=== PATIENT | male | born 1935 | race Two or more races ===

== ENCOUNTER 2017-10-22 19:07 | Inpatient (IN) | payer MEDICARE ==
[~2017-10-22] VITALS: Ht 185.4 cm; Wt 113.6 kg
[~2017-10-22 19:07] MED LIST: ALBU6.7H INH; AMIO200T57 PO; ATOR40TA72 PO; DOXA8TAB PO; FINA5TAB11 PO; GEMF600T3 PO; GLIM4TAB79 PO; METF500T4 PO; METO100T14 PO
[2017-10-22 19:41] LABS: BASOPHILS % (AUTO) 0.4 % (0-1); EOSINOPHILS # (AUTO) 0.2 X10'3 (0-0.9); EOSINOPHILS % (AUTO) 3.6 % (0-6); HEMATOCRIT 38.2 % (42.0-52.0); HEMOGLOBIN 12.8 g/dl (14.0-17.9); LYMPHOCYTES # (AUTO) 0.8 X10'3 (1.1-4.8); LYMPHOCYTES % (AUTO) 15.9 % (21-51); MEAN CORPUSCULAR HGB CONC 33.4 % (33.0-36.5); MEAN CORPUSCULAR VOLUME 95.8 FL (78-98); MEAN PLATELET VOLUME 8.3 FL (7.4-10.4); MONOCYTES # (AUTO) 0.3 X10'3 (0-0.9); MONOCYTES % (AUTO) 6.1 % (2-12); PLATELET COUNT 161 X10'3 (140-440); RED BLOOD COUNT 3.99 X10'6 (4.70-6.10); RED CELL DISTRIBUTION WIDTH 14.9 % (11.5-14.5); WHITE BLOOD COUNT 5.3 X10'3 (4.5-11.0)
[2017-10-22 19:52] LABS: INR 1.4 INR; PARTIAL THROMBOPLASTIN TIME 31 SECONDS (22-32)
[2017-10-22 19:57] LABS: ALANINE AMINOTRANSFERASE 35 U/L (12-78); ALBUMIN 4.2 G/DL (3.4-5.0); ALBUMIN/GLOBULIN RATIO 1.4 (1.1-1.5); ALKALINE PHOSPHATASE 52 IU/L (46-116); ANION GAP 6 (8-16); ASPARTATE AMINO TRANSFERASE 29 U/L (10-37); BILIRUBIN,TOTAL 1.7 MG/DL (0.1-1.0); BLOOD UREA NITROGEN 19 MG/DL (7-18); BUN/CREATININE RATIO 11.9 (5.4-32.0); CALCIUM 8.8 MG/DL (8.5-10.1); CHLORIDE 101 MMOL/L (99-107); GLUCOSE 148 MG/DL (70-104); SODIUM 139 MMOL/L (135-145); TOTAL CARBON DIOXIDE 31.6 MMOL/L (24-32); TOTAL PROTEIN 7.2 G/DL (6.4-8.2); eGFR 42 ML/MIN
[2017-10-22 20:56] LABS: D-DIMER 0.27 MG/L FEU (0-0.50)
[2017-10-22] MEDS ORDERED: acetaminophen 325mg tablet PO PRN (21:15)
[2017-10-22] MEDS ORDERED: non-formulary drug (Albuterol Sulfate (Proventil Hfa) 2 PUFFS) INH PRN (21:15)
[2017-10-22] MEDS ORDERED: HYDROcodone/acetaminophen 5mg/325mg tablet PO PRN (21:15)
[2017-10-22] MEDS ORDERED: ondansetron/PF 4mg/2ml inj IV PRN (21:15)
[2017-10-22] MEDS ORDERED: mag hydrox/Alum hydrox/simeth 30ml oral suspension PO PRN (21:15)
[2017-10-22] MEDS ORDERED: magnesium hydroxide 30ml (MOM) UD suspension PO PRN (21:15)
[2017-10-22] MEDS ORDERED: albuterol 2.5 MG/3 ML nebule NEB PRN (21:25)
[2017-10-22 22:43] LABS: ALANINE AMINOTRANSFERASE 26 U/L (12-78); ALBUMIN 3.6 G/DL (3.4-5.0); ALBUMIN/GLOBULIN RATIO 1.3 (1.1-1.5); ALKALINE PHOSPHATASE 48 IU/L (46-116); ASPARTATE AMINO TRANSFERASE 27 U/L (10-37); BILIRUBIN,DIRECT 0.2 MG/DL (0-0.3); BILIRUBIN,TOTAL 1.5 MG/DL (0.1-1.0); TOTAL PROTEIN 6.4 G/DL (6.4-8.2)
[2017-10-22 23:00] VITALS: BP 154/101
[2017-10-23] VITALS (7 sets, daily range): BP systolic 118–163; BP diastolic 55–93
[2017-10-23 02:03] LABS: BASOPHILS % (AUTO) 0.7 % (0-1); EOSINOPHILS # (AUTO) 0.2 X10'3 (0-0.9); EOSINOPHILS % (AUTO) 3.7 % (0-6); HEMATOCRIT 36.4 % (42.0-52.0); HEMOGLOBIN 12.1 g/dl (14.0-17.9); LYMPHOCYTES # (AUTO) 1.1 X10'3 (1.1-4.8); MEAN CORPUSCULAR HEMOGLOBIN 31.8 PG (27.0-31.0); MEAN CORPUSCULAR HGB CONC 33.1 % (33.0-36.5); MEAN CORPUSCULAR VOLUME 95.9 FL (78-98); MEAN PLATELET VOLUME 8.6 FL (7.4-10.4); MONOCYTES # (AUTO) 0.4 X10'3 (0-0.9); MONOCYTES % (AUTO) 7.8 % (2-12); NEUTROPHILS % (AUTO) 63.8 % (42-75); PLATELET COUNT 139 X10'3 (140-440); RED BLOOD COUNT 3.79 X10'6 (4.70-6.10); RED CELL DISTRIBUTION WIDTH 15.1 % (11.5-14.5); WHITE BLOOD COUNT 4.8 X10'3 (4.5-11.0)
[2017-10-23 02:06] LABS: INR 1.4 INR; PROTHROMBIN TIME 14.4 SECONDS (9.0-12.0)
[2017-10-23 02:12] LABS: ALANINE AMINOTRANSFERASE 29 U/L (12-78); ALBUMIN 3.7 G/DL (3.4-5.0); ALBUMIN/GLOBULIN RATIO 1.3 (1.1-1.5); ALKALINE PHOSPHATASE 47 IU/L (46-116); ANION GAP 5 (8-16); ASPARTATE AMINO TRANSFERASE 28 U/L (10-37); BILIRUBIN,TOTAL 1.6 MG/DL (0.1-1.0); BLOOD UREA NITROGEN 18 MG/DL (7-18); BUN/CREATININE RATIO 12.9 (5.4-32.0); CALCIUM 8.6 MG/DL (8.5-10.1); CHLORIDE 103 MMOL/L (99-107); GLUCOSE 109 MG/DL (70-104); POTASSIUM 3.7 MMOL/L (3.5-5.1); SODIUM 139 MMOL/L (135-145); TOTAL PROTEIN 6.5 G/DL (6.4-8.2); eGFR 49 ML/MIN
[2017-10-23] MEDS ORDERED: non-formulary drug (Metoprolol Tartrate 1 TAB) PO SCH (08:00)
[2017-10-23] MEDS ORDERED: amiodarone 200mg tablet PO SCH (08:00)
[2017-10-23] MEDS ORDERED: non-formulary drug (Atorvastatin Calcium 1 TAB) PO SCH (08:00)
[2017-10-23] MEDS: gemfibrozil 600mg tablet PO SCH ×2 (08:54→20:14)
[2017-10-23] MEDS: atorvastatin 20mg tablet PO SCH (08:54)
[2017-10-23] MEDS: finasteride 5mg tablet PO SCH (08:54)
[2017-10-23] MEDS: metoprolol tartrate 50mg tablet PO SCH ×2 (08:55→20:14)
[2017-10-23] MEDS: heparin, porcine 5000 units/ml vial SQ SCH ×2 (08:55→20:13)
[2017-10-23] MEDS: levoTHYROXINE 25mcg tablet PO SCH (12:34)
[2017-10-23] MEDS: amiodarone 200mg tablet PO SCH (12:34)
[2017-10-23] MEDS: doxazosin mesylate 2mg tablet PO SCH (20:13)
[2017-10-23] MEDS ORDERED: non-formulary drug (Doxazosin Mesylate 1 TAB) PO SCH (21:00)
[2017-10-24 03:00] VITALS: BP 123/69
[2017-10-24 05:27] LABS: INR 1.4 INR
[2017-10-24 05:29] LABS: BASOPHILS % (AUTO) 0.6 % (0-1); EOSINOPHILS # (AUTO) 0.2 X10'3 (0-0.9); EOSINOPHILS % (AUTO) 4.6 % (0-6); HEMATOCRIT 35.5 % (42.0-52.0); HEMOGLOBIN 11.8 g/dl (14.0-17.9); LYMPHOCYTES # (AUTO) 1.2 X10'3 (1.1-4.8); LYMPHOCYTES % (AUTO) 28.8 % (21-51); MEAN CORPUSCULAR HEMOGLOBIN 32.2 PG (27.0-31.0); MEAN CORPUSCULAR HGB CONC 33.2 % (33.0-36.5); MEAN CORPUSCULAR VOLUME 96.8 FL (78-98); MEAN PLATELET VOLUME 8.7 FL (7.4-10.4); MONOCYTES # (AUTO) 0.3 X10'3 (0-0.9); MONOCYTES % (AUTO) 8.3 % (2-12); NEUTROPHILS # (AUTO) 2.4 X10'3 (1.8-7.7); NEUTROPHILS % (AUTO) 57.7 % (42-75); PLATELET COUNT 128 X10'3 (140-440); RED BLOOD COUNT 3.67 X10'6 (4.70-6.10); RED CELL DISTRIBUTION WIDTH 14.9 % (11.5-14.5); WHITE BLOOD COUNT 4.1 X10'3 (4.5-11.0)
[2017-10-24 06:03] LABS: ALANINE AMINOTRANSFERASE 30 U/L (12-78); ALBUMIN 3.6 G/DL (3.4-5.0); ALBUMIN/GLOBULIN RATIO 1.4 (1.1-1.5); ALKALINE PHOSPHATASE 44 IU/L (46-116); ANION GAP 6 (8-16); ASPARTATE AMINO TRANSFERASE 28 U/L (10-37); BLOOD UREA NITROGEN 17 MG/DL (7-18); BUN/CREATININE RATIO 13.1 (5.4-32.0); CHLORIDE 104 MMOL/L (99-107); GLUCOSE 101 MG/DL (70-104); POTASSIUM 3.7 MMOL/L (3.5-5.1); SODIUM 141 MMOL/L (135-145); TOTAL PROTEIN 6.2 G/DL (6.4-8.2); eGFR 53 ML/MIN
[2017-10-24 06:30] VITALS: BP 138/76
[2017-10-24] MEDS ORDERED: levoTHYROXINE 25mcg tablet PO SCH (07:00)
[2017-10-24] MEDS: gemfibrozil 600mg tablet PO SCH ×2 (07:21→19:49)
[2017-10-24] MEDS: finasteride 5mg tablet PO SCH (07:22)
[2017-10-24] MEDS: atorvastatin 20mg tablet PO SCH (07:22)
[2017-10-24] MEDS: amiodarone 200mg tablet PO SCH (07:22)
[2017-10-24] MEDS: heparin, porcine 5000 units/ml vial SQ SCH ×2 (07:23→19:49)
[2017-10-24] MEDS: levoTHYROXINE 25mcg tablet PO SCH (07:23)
[2017-10-24] MEDS: metoprolol tartrate 50mg tablet PO SCH ×2 (07:23→19:49)
[2017-10-24 11:00] VITALS: BP_SYST 134; BP_SYST 140; BP_SYST 142; BP_DIAS 85; BP_DIAS 93
[2017-10-24 15:00] VITALS: BP 156/101
[2017-10-24 18:00] VITALS: BP 145/94
[2017-10-24] MEDS: doxazosin mesylate 2mg tablet PO SCH (20:57)
[2017-10-24 22:00] VITALS: BP 138/89
[2017-10-25 02:00] VITALS: BP 155/102
[2017-10-25 06:35] VITALS: BP 138/93
[2017-10-25 06:37] LABS: INR 1.4 INR; PROTHROMBIN TIME 14.1 SECONDS (9.0-12.0)
[2017-10-25 07:01] LABS: EOSINOPHILS # (AUTO) 0.2 X10'3 (0-0.9); EOSINOPHILS % (AUTO) 3.9 % (0-6); HEMATOCRIT 33.5 % (42.0-52.0); HEMOGLOBIN 11.9 g/dl (14.0-17.9); LYMPHOCYTES # (AUTO) 1.2 X10'3 (1.1-4.8); LYMPHOCYTES % (AUTO) 29.1 % (21-51); MEAN CORPUSCULAR HEMOGLOBIN 33.7 PG (27.0-31.0); MEAN CORPUSCULAR HGB CONC 35.4 % (33.0-36.5); MEAN CORPUSCULAR VOLUME 95.3 FL (78-98); MEAN PLATELET VOLUME 8.9 FL (7.4-10.4); MONOCYTES # (AUTO) 0.3 X10'3 (0-0.9); MONOCYTES % (AUTO) 7.8 % (2-12); NEUTROPHILS # (AUTO) 2.3 X10'3 (1.8-7.7); NEUTROPHILS % (AUTO) 58.2 % (42-75); PLATELET COUNT 127 X10'3 (140-440); RED BLOOD COUNT 3.52 X10'6 (4.70-6.10); RED CELL DISTRIBUTION WIDTH 13.9 % (11.5-14.5)
[2017-10-25 07:05] LABS: ALANINE AMINOTRANSFERASE 28 U/L (12-78); ALBUMIN 3.6 G/DL (3.4-5.0); ALBUMIN/GLOBULIN RATIO 1.4 (1.1-1.5); ALKALINE PHOSPHATASE 44 IU/L (46-116); ANION GAP 6 (8-16); ASPARTATE AMINO TRANSFERASE 25 U/L (10-37); BLOOD UREA NITROGEN 15 MG/DL (7-18); BUN/CREATININE RATIO 10.7 (5.4-32.0); CALCIUM 8.6 MG/DL (8.5-10.1); CHLORIDE 106 MMOL/L (99-107); GLUCOSE 135 MG/DL (70-104); POTASSIUM 3.8 MMOL/L (3.5-5.1); SODIUM 144 MMOL/L (135-145); TOTAL PROTEIN 6.2 G/DL (6.4-8.2); eGFR 49 ML/MIN
[2017-10-25] MEDS: heparin, porcine 5000 units/ml vial SQ SCH (08:00)
[2017-10-25] MEDS: amiodarone 200mg tablet PO SCH (09:42)
[2017-10-25] MEDS: gemfibrozil 600mg tablet PO SCH (09:42)
[2017-10-25] MEDS: metoprolol tartrate 50mg tablet PO SCH (09:44)
[2017-10-25] MEDS: atorvastatin 20mg tablet PO SCH (09:44)
[2017-10-25] MEDS: levoTHYROXINE 25mcg tablet PO SCH (09:45)
[2017-10-25] MEDS: finasteride 5mg tablet PO SCH (09:45)
[2017-10-25 11:00] VITALS: BP 140/88
[2017-10-25] MEDS ORDERED: LEVO25TA7 PO (14:07)
== END 2017-10-25 14:45 | disposition home health service (06) | DRG 312 ==
LOC: ER 19:08 → ED HOLD 21:13 → PCU 3S 10-23 00:04
PROVIDERS: ADMIT Internal Medicine; ATTEND Internal Medicine
PROC: 4B02XSZ Measurement of Cardiac Pacemaker, External Approach (ICD-10-PCS; principal; 2017-10-23)
DX: R55 Syncope and collapse (principal); I11.0 Hypertensive heart disease with heart failure; I48.0 Paroxysmal atrial fibrillation; I49.5 Sick sinus syndrome; I50.9 Heart failure, unspecified; E11.9 Type 2 diabetes mellitus without complications; E78.00 Pure hypercholesterolemia, unspecified; E03.9 Hypothyroidism, unspecified; E66.9 Obesity, unspecified; E78.5 Hyperlipidemia, unspecified; G47.33 Obstructive sleep apnea (adult) (pediatric); I08.0 Rheumatic disorders of both mitral and aortic valves; Z96.651 Presence of right artificial knee joint; Z96.652 Presence of left artificial knee joint; J44.9 Chronic obstructive pulmonary disease, unspecified; K21.9 Gastro-esophageal reflux disease without esophagitis; M19.90 Unspecified osteoarthritis, unspecified site; N40.0 Benign prostatic hyperplasia without lower urinary tract symptoms; Z66 Do not resuscitate; G89.29 Other chronic pain; R74.8 Abnormal levels of other serum enzymes; N28.9 Disorder of kidney and ureter, unspecified; I25.10 Atherosclerotic heart disease of native coronary artery without angina pectoris; Z88.0 Allergy status to penicillin; Z79.899 Other long term (current) drug therapy; Z79.01 Long term (current) use of anticoagulants; Z79.82 Long term (current) use of aspirin; Z68.33 Body mass index [BMI] 33.0-33.9, adult; Z82.49 Family history of ischemic heart disease and other diseases of the circulatory system; Z82.3 Family history of stroke; Z86.73 Personal history of transient ischemic attack (TIA), and cerebral infarction without residual deficits; Z87.891 Personal history of nicotine dependence; Z95.0 Presence of cardiac pacemaker; Z95.1 Presence of aortocoronary bypass graft; Z90.49 Acquired absence of other specified parts of digestive tract; Z79.84 Long term (current) use of oral hypoglycemic drugs
CPT/HCPCS: 36415; 70450; 71045; 74021; 80053; 80076; 82948; 83880; 84439; 84443; 84484; 85025; 85379; 85610; 85730; 93005; 94760; 97110; 97116; 97161; 99285; J1644

== ENCOUNTER 2017-10-26 01:14 | Inpatient (IN) | payer MEDICARE ==
[~2017-10-26] VITALS: Ht 180.3 cm; Wt 114.8 kg
[~2017-10-26 01:14] MED LIST changes: +LEVO25TA7 PO; -METF500T4 PO
[2017-10-26 02:26] LABS: BASOPHILS # (AUTO) 0.1 X10'3 (0-0.2); BASOPHILS % (AUTO) 1.1 % (0-1); EOSINOPHILS # (AUTO) 0.1 X10'3 (0-0.9); EOSINOPHILS % (AUTO) 2.5 % (0-6); HEMATOCRIT 35.4 % (42.0-52.0); LYMPHOCYTES # (AUTO) 0.9 X10'3 (1.1-4.8); LYMPHOCYTES % (AUTO) 17.2 % (21-51); MEAN CORPUSCULAR HEMOGLOBIN 32.3 PG (27.0-31.0); MEAN CORPUSCULAR HGB CONC 33.9 % (33.0-36.5); MEAN CORPUSCULAR VOLUME 95.3 FL (78-98); MEAN PLATELET VOLUME 9.7 FL (7.4-10.4); MONOCYTES # (AUTO) 0.4 X10'3 (0-0.9); MONOCYTES % (AUTO) 7.6 % (2-12); NEUTROPHILS # (AUTO) 3.6 X10'3 (1.8-7.7); NEUTROPHILS % (AUTO) 71.6 % (42-75); PLATELET COUNT 143 X10'3 (140-440); RED BLOOD COUNT 3.72 X10'6 (4.70-6.10)
[2017-10-26 02:26] LABS: CLARITY,URINE CLEAR (Clear); COLOR,URINE YELLOW (Yellow); GLUCOSE, URINE NEGATIVE (Neg); KETONES,URINE NEGATIVE (Neg); LEUKOCYTE ESTERASE ,URINE NEGATIVE (Neg); NITRITES, URINE NEGATIVE (Neg); OCCULT BLOOD,URINE NEGATIVE (Neg); PROTEIN,URINE NEGATIVE (Neg); UROBILINOGEN,URINE 0.2 E.U/dL (0.2-1.0)
[2017-10-26 02:31] LABS: UA COLLECTION TYPE CLN CATCH MIDSTREAM
[2017-10-26 02:55] LABS: ALANINE AMINOTRANSFERASE 28 U/L (12-78); ALBUMIN 3.7 G/DL (3.4-5.0); ALBUMIN/GLOBULIN RATIO 1.3 (1.1-1.5); ALKALINE PHOSPHATASE 44 IU/L (46-116); ANION GAP 12 (8-16); ASPARTATE AMINO TRANSFERASE 27 U/L (10-37); BILIRUBIN,TOTAL 1.9 MG/DL (0.1-1.0); BLOOD UREA NITROGEN 20 MG/DL (7-18); BUN/CREATININE RATIO 13.3 (5.4-32.0); CALCIUM 8.6 MG/DL (8.5-10.1); CHLORIDE 104 MMOL/L (99-107); GLUCOSE 179 MG/DL (70-104); MAGNESIUM 1.7 MG/DL (1.5-2.4); POTASSIUM 3.7 MMOL/L (3.5-5.1); SODIUM 141 MMOL/L (135-145); TOTAL CARBON DIOXIDE 24.8 MMOL/L (24-32); TOTAL PROTEIN 6.5 G/DL (6.4-8.2); eGFR 45 ML/MIN
[2017-10-26] MEDS ORDERED: potassium Cl 20 mEq SR tablet PO PRN ×2 (04:00)
[2017-10-26] MEDS ORDERED: magnesium 2GM in 50ml NS 50 ML IV PRN (04:00)
[2017-10-26] MEDS ORDERED: magnesium Cl slow-release 64mg tablet PO PRN (04:00)
[2017-10-26] MEDS ORDERED: HYDROcodone/acetaminophen 5mg/325mg tablet PO PRN (04:00)
[2017-10-26] MEDS ORDERED: albuterol 2.5 MG/3 ML nebule NEB PRN (04:00)
[2017-10-26] MEDS ORDERED: mag hydrox/Alum hydrox/simeth 30ml oral suspension PO PRN (04:00)
[2017-10-26] MEDS ORDERED: potassium Cl 40MEQ/NS 500ml 500 ML IV PRN ×2 (04:00)
[2017-10-26] MEDS ORDERED: magnesium hydroxide 30ml (MOM) UD suspension PO PRN (04:00)
[2017-10-26] MEDS ORDERED: HYDROcodone/acetaminophen 10/325mg tab PO PRN (04:00)
[2017-10-26] MEDS ORDERED: acetaminophen 325mg tablet PO PRN (04:00)
[2017-10-26] MEDS ORDERED: ondansetron/PF 4mg/2ml inj IV PRN (04:00)
[2017-10-26] MEDS ORDERED: magnesium 4gm in 100ml NS 100 ML IV PRN (04:00)
[2017-10-26] MEDS ORDERED: ipratropium/albuterol 3ml nebule NEB PRN (04:00)
[2017-10-26] MEDS: normal saline 1000ml 1,000 ML IV SCH (05:06)
[2017-10-26] MEDS: levoTHYROXINE 100mcg tablet PO SCH (07:08)
[2017-10-26] MEDS: K and/or MAG REPLACEMENT MC SCH (08:00)
[2017-10-26 08:27] VITALS: BP 138/94
[2017-10-26] MEDS: finasteride 5mg tablet PO SCH (09:44)
[2017-10-26] MEDS: amiodarone 200mg tablet PO SCH (09:45)
[2017-10-26] MEDS: atorvastatin 20mg tablet PO SCH (09:46)
[2017-10-26] MEDS: metoprolol tartrate 50mg tablet PO SCH ×2 (09:47→21:39)
[2017-10-26] MEDS: heparin, porcine 5000 units/ml vial SQ SCH ×2 (09:48→21:35)
[2017-10-26 11:00] VITALS: BP 108/71
[2017-10-26 13:52] LABS: INR 1.4 INR; PROTHROMBIN TIME 14.4 SECONDS (9.0-12.0)
[2017-10-26 20:00] VITALS: BP 119/79
[2017-10-26] MEDS ORDERED: doxazosin mesylate 2mg tablet PO SCH (21:00)
[2017-10-26] MEDS ORDERED: warfarin 4mg tablet PO ONE (21:00)
[2017-10-26] MEDS ORDERED: temazepam 15mg capsule PO PRN (21:00)
[2017-10-27] VITALS: BP 134/88
[2017-10-27] MEDS: normal saline 1000ml 1,000 ML IV SCH ×2 (02:15→10:55)
[2017-10-27 07:09] LABS: BASOPHILS % (AUTO) 0.4 % (0-1); EOSINOPHILS # (AUTO) 0.2 X10'3 (0-0.9); EOSINOPHILS % (AUTO) 3.7 % (0-6); HEMATOCRIT 37.1 % (42.0-52.0); HEMOGLOBIN 12.4 g/dl (14.0-17.9); LYMPHOCYTES % (AUTO) 19.9 % (21-51); MEAN CORPUSCULAR HEMOGLOBIN 32.3 PG (27.0-31.0); MEAN CORPUSCULAR HGB CONC 33.3 % (33.0-36.5); MEAN CORPUSCULAR VOLUME 96.9 FL (78-98); MONOCYTES # (AUTO) 0.3 X10'3 (0-0.9); MONOCYTES % (AUTO) 6.7 % (2-12); NEUTROPHILS # (AUTO) 3.4 X10'3 (1.8-7.7); NEUTROPHILS % (AUTO) 69.3 % (42-75); PLATELET COUNT 137 X10'3 (140-440); RED BLOOD COUNT 3.82 X10'6 (4.70-6.10)
[2017-10-27 07:13] LABS: INR 1.3 INR; PROTHROMBIN TIME 13.4 SECONDS (9.0-12.0)
[2017-10-27 07:38] LABS: ALANINE AMINOTRANSFERASE 30 U/L (12-78); ALBUMIN/GLOBULIN RATIO 1.5 (1.1-1.5); ALKALINE PHOSPHATASE 47 IU/L (46-116); ANION GAP 8 (8-16); ASPARTATE AMINO TRANSFERASE 28 U/L (10-37); BILIRUBIN,TOTAL 2.1 MG/DL (0.1-1.0); BLOOD UREA NITROGEN 13 MG/DL (7-18); BUN/CREATININE RATIO 10.8 (5.4-32.0); CALCIUM 8.9 MG/DL (8.5-10.1); CHLORIDE 106 MMOL/L (99-107); CHOLESTEROL 126 MG/DL (0-200); GLUCOSE 165 MG/DL (70-104); HDL CHOLESTEROL 63 MG/DL (35-60); LDL CHOLESTEROL 53 MG/DL (50-100); MAGNESIUM 1.6 MG/DL (1.5-2.4); POTASSIUM 3.9 MMOL/L (3.5-5.1); SODIUM 143 MMOL/L (135-145); TOTAL CARBON DIOXIDE 28.7 MMOL/L (24-32); TOTAL PROTEIN 6.7 G/DL (6.4-8.2); TRIGLYCERIDES 124 MG/DL (20-135); eGFR 58 ML/MIN
[2017-10-27 07:50] VITALS: BP 117/72
[2017-10-27] MEDS: K and/or MAG REPLACEMENT MC SCH (08:00)
[2017-10-27] MEDS: levoTHYROXINE 100mcg tablet PO SCH (08:15)
[2017-10-27] MEDS: amiodarone 200mg tablet PO SCH (08:15)
[2017-10-27] MEDS: metoprolol tartrate 50mg tablet PO SCH (08:16)
[2017-10-27] MEDS: finasteride 5mg tablet PO SCH (08:16)
[2017-10-27] MEDS: atorvastatin 20mg tablet PO SCH (08:17)
[2017-10-27] MEDS: heparin, porcine 5000 units/ml vial SQ SCH (08:19)
[2017-10-27 11:45] VITALS: BP 141/98
[2017-10-27] MEDS ORDERED: enoxaparin 40mg/0.4ml syringe SUBCUT ONE (15:45)
[2017-10-27] MEDS ORDERED: LEVO25TA7 PO (15:46)
[2017-10-27] MEDS ORDERED: warfarin 5mg tablet PO ONE (21:00)
== END 2017-10-27 17:46 | disposition home health service (06) | DRG 643 ==
LOC: ER 01:14 → ED HOLD 04:03 → SUR 3N 07:47
PROVIDERS: ADMIT Internal Medicine; ATTEND Internal Medicine
DX: E03.9 Hypothyroidism, unspecified (principal); G93.40 Encephalopathy, unspecified; E11.22 Type 2 diabetes mellitus with diabetic chronic kidney disease; I13.0 Hypertensive heart and chronic kidney disease with heart failure and stage 1 through stage 4 chronic kidney disease, or unspecified chronic kidney disease; I48.91 Unspecified atrial fibrillation; I50.9 Heart failure, unspecified; E78.00 Pure hypercholesterolemia, unspecified; J44.9 Chronic obstructive pulmonary disease, unspecified; D64.9 Anemia, unspecified; N18.9 Chronic kidney disease, unspecified; G89.29 Other chronic pain; I25.10 Atherosclerotic heart disease of native coronary artery without angina pectoris; K21.9 Gastro-esophageal reflux disease without esophagitis; Z95.0 Presence of cardiac pacemaker; Z95.1 Presence of aortocoronary bypass graft; Z90.49 Acquired absence of other specified parts of digestive tract; Z88.0 Allergy status to penicillin; Z79.899 Other long term (current) drug therapy; Z79.84 Long term (current) use of oral hypoglycemic drugs; Z86.73 Personal history of transient ischemic attack (TIA), and cerebral infarction without residual deficits; Z82.3 Family history of stroke; Z82.49 Family history of ischemic heart disease and other diseases of the circulatory system; Z82.41 Family history of sudden cardiac death
CPT/HCPCS: 36415; 71045; 80053; 80061; 81003; 82140; 82948; 83036; 83735; 84439; 84443; 84484; 85025; 85610; 93005; 93306; 94760; 99285; J1644; J1650; J7030

== ENCOUNTER 2017-12-06 17:52 | Inpatient (IN) | payer MEDICARE ==
[~2017-12-06] VITALS: Ht 180.3 cm; Wt 109.0 kg
[2017-12-06 18:22] LABS: EOSINOPHILS # (AUTO) 0.3 X10'3 (0-0.9); EOSINOPHILS % (AUTO) 6.3 % (0-6); HEMATOCRIT 33.2 % (42.0-52.0); HEMOGLOBIN 11.2 g/dl (14.0-17.9); LYMPHOCYTES % (AUTO) 21.4 % (21-51); MEAN CORPUSCULAR HGB CONC 33.8 % (33.0-36.5); MEAN CORPUSCULAR VOLUME 94.8 FL (78-98); MEAN PLATELET VOLUME 8.1 FL (7.4-10.4); MONOCYTES # (AUTO) 0.5 X10'3 (0-0.9); MONOCYTES % (AUTO) 10.1 % (2-12); NEUTROPHILS # (AUTO) 2.8 X10'3 (1.8-7.7); NEUTROPHILS % (AUTO) 61.2 % (42-75); PLATELET COUNT 137 X10'3 (140-440); RED CELL DISTRIBUTION WIDTH 14.7 % (11.5-14.5); WHITE BLOOD COUNT 4.5 X10'3 (4.5-11.0)
[2017-12-06 18:32] LABS: INR 1.8 INR; PARTIAL THROMBOPLASTIN TIME 33 SECONDS (22-32); PROTHROMBIN TIME 18.4 SECONDS (9.0-12.0)
[2017-12-06] MEDS ORDERED: COU1T PO (18:44)
[2017-12-06] MEDS ORDERED: LEVO100T78 PO (18:44)
[2017-12-06] MEDS ORDERED: METF500T PO ×2 (18:44)
[2017-12-06] MEDS ORDERED: ESOM40CA30 PO (18:44)
[2017-12-06 18:48] LABS: ALANINE AMINOTRANSFERASE 23 U/L (12-78); ALBUMIN 3.6 G/DL (3.4-5.0); ALBUMIN/GLOBULIN RATIO 1.2 (1.1-1.5); ALKALINE PHOSPHATASE 53 IU/L (46-116); ANION GAP 6 (8-16); ASPARTATE AMINO TRANSFERASE 20 U/L (10-37); BILIRUBIN,TOTAL 1.9 MG/DL (0.1-1.0); BLOOD UREA NITROGEN 13 MG/DL (7-18); BUN/CREATININE RATIO 11.5 (5.4-32.0); CHLORIDE 104 MMOL/L (99-107); CREATINE KINASE 61 U/L (39-308); CREATININE 1.13 MG/DL (0.60-1.10); GLUCOSE 124 MG/DL (70-104); MAGNESIUM 1.6 MG/DL (1.5-2.4); POTASSIUM 4.5 MMOL/L (3.5-5.1); SODIUM 140 MMOL/L (135-145); TOTAL CARBON DIOXIDE 29.6 MMOL/L (24-32); TOTAL PROTEIN 6.7 G/DL (6.4-8.2); eGFR 62 ML/MIN
[2017-12-06] MEDS ORDERED: aspirin 325mg tablet PO ONE (19:00)
[2017-12-06] MEDS ORDERED: HYDROcodone/acetaminophen 5mg/325mg tablet PO PRN (20:05)
[2017-12-06] MEDS ORDERED: ondansetron/PF 4mg/2ml inj IV PRN (20:05)
[2017-12-06] MEDS ORDERED: mag hydrox/Alum hydrox/simeth 30ml oral suspension PO PRN (20:05)
[2017-12-06] MEDS ORDERED: magnesium hydroxide 30ml (MOM) UD suspension PO PRN (20:05)
[2017-12-06] MEDS ORDERED: acetaminophen 325mg tablet PO PRN ×2 (20:05)
[2017-12-06] MEDS ORDERED: albuterol 2.5 MG/3 ML nebule NEB PRN (20:50)
[2017-12-06] MEDS ORDERED: metFORMIN 500mg tablet PO SCH (21:00)
[2017-12-06] MEDS ORDERED: temazepam 15mg capsule PO PRN (21:00)
[2017-12-06] MEDS: metoprolol tartrate 50mg tablet PO SCH (21:48)
[2017-12-06] MEDS: metFORMIN 500mg tablet PO SCH (21:48)
[2017-12-06] MEDS: doxazosin mesylate 2mg tablet PO SCH (21:50)
[2017-12-06] MEDS: warfarin 1mg tablet PO SCH (21:50)
[2017-12-06 22:14] LABS: CLARITY,URINE CLEAR (Clear); COLOR,URINE YELLOW (Yellow); GLUCOSE, URINE NEGATIVE (Neg); KETONES,URINE NEGATIVE (Neg); LEUKOCYTE ESTERASE ,URINE NEGATIVE (Neg); NITRITES, URINE NEGATIVE (Neg); OCCULT BLOOD,URINE NEGATIVE (Neg); PROTEIN,URINE NEGATIVE (Neg); UROBILINOGEN,URINE 0.2 E.U/dL (0.2-1.0)
[2017-12-06 22:24] LABS: UA COLLECTION TYPE URINAL
[2017-12-07 00:05] LABS: CHOL/HDL RATIO 1.8 (0.00-4.99); CHOLESTEROL 69 MG/DL (0-200); HDL CHOLESTEROL 38 MG/DL (35-60); LDL CHOLESTEROL 24 MG/DL (50-100); TRIGLYCERIDES 80 MG/DL (20-135)
[2017-12-07 06:18] LABS: BASOPHILS % (AUTO) 0.8 % (0-1); EOSINOPHILS # (AUTO) 0.2 X10'3 (0-0.9); EOSINOPHILS % (AUTO) 5.7 % (0-6); HEMATOCRIT 30.8 % (42.0-52.0); HEMOGLOBIN 10.4 g/dl (14.0-17.9); LYMPHOCYTES # (AUTO) 0.9 X10'3 (1.1-4.8); LYMPHOCYTES % (AUTO) 22.1 % (21-51); MEAN CORPUSCULAR HEMOGLOBIN 32.1 PG (27.0-31.0); MEAN CORPUSCULAR HGB CONC 33.8 % (33.0-36.5); MEAN CORPUSCULAR VOLUME 94.9 FL (78-98); MEAN PLATELET VOLUME 8.2 FL (7.4-10.4); MONOCYTES # (AUTO) 0.4 X10'3 (0-0.9); MONOCYTES % (AUTO) 9.9 % (2-12); NEUTROPHILS # (AUTO) 2.6 X10'3 (1.8-7.7); NEUTROPHILS % (AUTO) 61.5 % (42-75); PLATELET COUNT 128 X10'3 (140-440); RED BLOOD COUNT 3.24 X10'6 (4.70-6.10); RED CELL DISTRIBUTION WIDTH 14.4 % (11.5-14.5); WHITE BLOOD COUNT 4.2 X10'3 (4.5-11.0)
[2017-12-07 06:28] LABS: ALBUMIN 3.4 G/DL (3.4-5.0); ANION GAP 9 (8-16); BLOOD UREA NITROGEN 12 MG/DL (7-18); CALCIUM 8.4 MG/DL (8.5-10.1); CHLORIDE 106 MMOL/L (99-107); GLUCOSE 72 MG/DL (70-104); INR 1.8 INR; PROTHROMBIN TIME 18.7 SECONDS (9.0-12.0); SODIUM 142 MMOL/L (135-145); TOTAL CARBON DIOXIDE 27.5 MMOL/L (24-32); eGFR 72 ML/MIN
[2017-12-07] MEDS: amiodarone 100mg tablet PO SCH (08:22)
[2017-12-07] MEDS: finasteride 5mg tablet PO SCH (08:22)
[2017-12-07] MEDS: levoTHYROXINE 100mcg tablet PO SCH (08:24)
[2017-12-07] MEDS: metFORMIN 500mg tablet PO SCH ×2 (08:24→20:26)
[2017-12-07] MEDS: atorvastatin 20mg tablet PO SCH (08:25)
[2017-12-07] MEDS: metoprolol tartrate 50mg tablet PO SCH ×2 (08:25→20:26)
[2017-12-07] MEDS: pantoprazole 40mg Tablet.DR PO SCH (08:28)
[2017-12-07 10:03] LABS: BASOPHILS % (AUTO) 0.6 % (0-1); EOSINOPHILS # (AUTO) 0.3 X10'3 (0-0.9); EOSINOPHILS % (AUTO) 5.9 % (0-6); HEMATOCRIT 29.9 % (42.0-52.0); HEMOGLOBIN 10.3 g/dl (14.0-17.9); LYMPHOCYTES # (AUTO) 0.9 X10'3 (1.1-4.8); LYMPHOCYTES % (AUTO) 18.3 % (21-51); MEAN CORPUSCULAR HEMOGLOBIN 32.5 PG (27.0-31.0); MEAN CORPUSCULAR HGB CONC 34.5 % (33.0-36.5); MEAN CORPUSCULAR VOLUME 94.3 FL (78-98); MONOCYTES # (AUTO) 0.4 X10'3 (0-0.9); MONOCYTES % (AUTO) 9.3 % (2-12); NEUTROPHILS # (AUTO) 3.1 X10'3 (1.8-7.7); NEUTROPHILS % (AUTO) 65.9 % (42-75); PLATELET COUNT 125 X10'3 (140-440); RED BLOOD COUNT 3.17 X10'6 (4.70-6.10); RED CELL DISTRIBUTION WIDTH 14.8 % (11.5-14.5); WHITE BLOOD COUNT 4.7 X10'3 (4.5-11.0)
[2017-12-07 10:09] LABS: INR 1.9 INR; PARTIAL THROMBOPLASTIN TIME 32 SECONDS (22-32); PROTHROMBIN TIME 19.4 SECONDS (9.0-12.0)
[2017-12-07 10:17] LABS: ALANINE AMINOTRANSFERASE 22 U/L (12-78); ALBUMIN 3.3 G/DL (3.4-5.0); ALBUMIN/GLOBULIN RATIO 1.2 (1.1-1.5); ALKALINE PHOSPHATASE 47 IU/L (46-116); ANION GAP 8 (8-16); ASPARTATE AMINO TRANSFERASE 22 U/L (10-37); BILIRUBIN,TOTAL 1.8 MG/DL (0.1-1.0); BLOOD UREA NITROGEN 12 MG/DL (7-18); BUN/CREATININE RATIO 10.3 (5.4-32.0); CALCIUM 8.7 MG/DL (8.5-10.1); CHLORIDE 105 MMOL/L (99-107); CREATININE 1.17 MG/DL (0.60-1.10); GLUCOSE 122 MG/DL (70-104); POTASSIUM 4.3 MMOL/L (3.5-5.1); SODIUM 143 MMOL/L (135-145); TOTAL CARBON DIOXIDE 30.2 MMOL/L (24-32); TROPONIN I 0.05 NG/ML (0.0-0.05); eGFR 60 ML/MIN
[2017-12-07 14:10] VITALS: BP 155/97
[2017-12-07 18:00] VITALS: BP 152/87
[2017-12-07] MEDS: aspirin 81mg tablet.DR PO SCH (20:26)
[2017-12-07] MEDS: doxazosin mesylate 2mg tablet PO SCH (20:33)
[2017-12-07] MEDS: warfarin 1mg tablet PO SCH ×2 (20:36→21:00)
[2017-12-07] MEDS ORDERED: dextrose 50%-water 50ml dispensing syringe IV ONE (21:25)
[2017-12-07 22:00] VITALS: BP 134/82
[2017-12-08 02:00] VITALS: BP 124/73
[2017-12-08 06:00] VITALS: BP 129/76
[2017-12-08 07:34] LABS: BASOPHILS % (AUTO) 0.8 % (0-1); EOSINOPHILS # (AUTO) 0.2 X10'3 (0-0.9); EOSINOPHILS % (AUTO) 4.6 % (0-6); HEMATOCRIT 30.4 % (42.0-52.0); HEMOGLOBIN 10.1 g/dl (14.0-17.9); LYMPHOCYTES # (AUTO) 0.9 X10'3 (1.1-4.8); LYMPHOCYTES % (AUTO) 17.7 % (21-51); MEAN CORPUSCULAR HEMOGLOBIN 31.6 PG (27.0-31.0); MEAN CORPUSCULAR HGB CONC 33.2 % (33.0-36.5); MEAN CORPUSCULAR VOLUME 95.1 FL (78-98); MEAN PLATELET VOLUME 8.2 FL (7.4-10.4); MONOCYTES # (AUTO) 0.5 X10'3 (0-0.9); MONOCYTES % (AUTO) 9.9 % (2-12); NEUTROPHILS # (AUTO) 3.4 X10'3 (1.8-7.7); PLATELET COUNT 117 X10'3 (140-440); RED CELL DISTRIBUTION WIDTH 14.4 % (11.5-14.5); WHITE BLOOD COUNT 5.1 X10'3 (4.5-11.0)
[2017-12-08 07:46] LABS: PROTHROMBIN TIME 20.1 SECONDS (9.0-12.0)
[2017-12-08 07:58] LABS: ALBUMIN 3.2 G/DL (3.4-5.0); ANION GAP 10 (8-16); BLOOD UREA NITROGEN 11 MG/DL (7-18); BUN/CREATININE RATIO 11.5 (5.4-32.0); CALCIUM 8.6 MG/DL (8.5-10.1); CHLORIDE 106 MMOL/L (99-107); CREATININE 0.96 MG/DL (0.60-1.10); GLUCOSE 55 MG/DL (70-104); POTASSIUM 3.7 MMOL/L (3.5-5.1); SODIUM 145 MMOL/L (135-145); eGFR 75 ML/MIN
[2017-12-08] MEDS ORDERED: metFORMIN 500mg tablet PO SCH (08:00)
[2017-12-08] MEDS: atorvastatin 20mg tablet PO SCH (09:19)
[2017-12-08] MEDS: levoTHYROXINE 100mcg tablet PO SCH (09:19)
[2017-12-08] MEDS: aspirin 81mg tablet.DR PO SCH (09:19)
[2017-12-08] MEDS: metoprolol tartrate 50mg tablet PO SCH ×2 (09:19→20:16)
[2017-12-08] MEDS: amiodarone 100mg tablet PO SCH (09:19)
[2017-12-08] MEDS: finasteride 5mg tablet PO SCH (09:20)
[2017-12-08] MEDS: pantoprazole 40mg Tablet.DR PO SCH (09:20)
[2017-12-08] MEDS: metFORMIN 500mg tablet PO SCH ×2 (09:20→20:15)
[2017-12-08 10:00] VITALS: BP 122/86
[2017-12-08 19:45] VITALS: BP 122/70
[2017-12-08] MEDS: warfarin 1mg tablet PO SCH (20:16)
[2017-12-08] MEDS: doxazosin mesylate 2mg tablet PO SCH (20:17)
[2017-12-08 23:12] VITALS: BP 138/90
[2017-12-09 02:43] VITALS: BP 144/83
[2017-12-09 06:00] VITALS: BP 138/84
[2017-12-09 07:06] LABS: BASOPHILS # (AUTO) 0.1 X10'3 (0-0.2); BASOPHILS % (AUTO) 1.1 % (0-1); EOSINOPHILS # (AUTO) 0.3 X10'3 (0-0.9); HEMATOCRIT 29.4 % (42.0-52.0); HEMOGLOBIN 9.8 g/dl (14.0-17.9); LYMPHOCYTES # (AUTO) 0.9 X10'3 (1.1-4.8); LYMPHOCYTES % (AUTO) 19.5 % (21-51); MEAN CORPUSCULAR HEMOGLOBIN 31.9 PG (27.0-31.0); MEAN CORPUSCULAR HGB CONC 33.3 % (33.0-36.5); MEAN CORPUSCULAR VOLUME 95.8 FL (78-98); MEAN PLATELET VOLUME 8.1 FL (7.4-10.4); MONOCYTES # (AUTO) 0.5 X10'3 (0-0.9); MONOCYTES % (AUTO) 10.9 % (2-12); NEUTROPHILS % (AUTO) 62.5 % (42-75); PLATELET COUNT 119 X10'3 (140-440); RED BLOOD COUNT 3.07 X10'6 (4.70-6.10); RED CELL DISTRIBUTION WIDTH 14.5 % (11.5-14.5); WHITE BLOOD COUNT 4.7 X10'3 (4.5-11.0)
[2017-12-09 07:18] LABS: INR 2.5 INR; PROTHROMBIN TIME 25.1 SECONDS (9.0-12.0)
[2017-12-09 07:26] LABS: ALBUMIN 3.2 G/DL (3.4-5.0); ANION GAP 8 (8-16); BLOOD UREA NITROGEN 11 MG/DL (7-18); BUN/CREATININE RATIO 11.3 (5.4-32.0); CALCIUM 8.3 MG/DL (8.5-10.1); CHLORIDE 106 MMOL/L (99-107); CREATININE 0.97 MG/DL (0.60-1.10); GLUCOSE 81 MG/DL (70-104); POTASSIUM 3.7 MMOL/L (3.5-5.1); SODIUM 144 MMOL/L (135-145); TOTAL CARBON DIOXIDE 29.6 MMOL/L (24-32); eGFR 74 ML/MIN
[2017-12-09] MEDS ORDERED: metFORMIN 500mg tablet PO SCH (08:00)
[2017-12-09] MEDS: levoTHYROXINE 100mcg tablet PO SCH (08:44)
[2017-12-09] MEDS: finasteride 5mg tablet PO SCH (08:44)
[2017-12-09] MEDS: amiodarone 100mg tablet PO SCH (08:44)
[2017-12-09] MEDS: aspirin 81mg tablet.DR PO SCH (08:44)
[2017-12-09] MEDS: pantoprazole 40mg Tablet.DR PO SCH (08:45)
[2017-12-09] MEDS: metoprolol tartrate 50mg tablet PO SCH (08:45)
[2017-12-09] MEDS: atorvastatin 20mg tablet PO SCH (08:45)
[2017-12-09] MEDS ORDERED: METF500T4 PO (10:20)
== END 2017-12-09 13:15 | disposition home health service (06) | DRG 637 ==
LOC: ER 17:54 → ED HOLD 20:02 → OBSVTOIN 12-07 14:00 → ORTHO 4S 12-07 14:00
PROVIDERS: ADMIT Hospitalist; ATTEND Family Medicine
DX: E11.649 Type 2 diabetes mellitus with hypoglycemia without coma (principal); G93.41 Metabolic encephalopathy; D69.6 Thrombocytopenia, unspecified; I48.91 Unspecified atrial fibrillation; I11.0 Hypertensive heart disease with heart failure; I50.32 Chronic diastolic (congestive) heart failure; D64.9 Anemia, unspecified; R47.01 Aphasia; E03.9 Hypothyroidism, unspecified; E78.00 Pure hypercholesterolemia, unspecified; E78.5 Hyperlipidemia, unspecified; K21.9 Gastro-esophageal reflux disease without esophagitis; I25.10 Atherosclerotic heart disease of native coronary artery without angina pectoris; J44.9 Chronic obstructive pulmonary disease, unspecified; Z60.2 Problems related to living alone; F17.210 Nicotine dependence, cigarettes, uncomplicated; Z66 Do not resuscitate; Z88.0 Allergy status to penicillin; Z90.49 Acquired absence of other specified parts of digestive tract; Z95.0 Presence of cardiac pacemaker; Z95.1 Presence of aortocoronary bypass graft; Z98.52 Vasectomy status; Z96.653 Presence of artificial knee joint, bilateral; Z79.899 Other long term (current) drug therapy; Z79.01 Long term (current) use of anticoagulants; Z79.4 Long term (current) use of insulin; Z79.84 Long term (current) use of oral hypoglycemic drugs; Z86.73 Personal history of transient ischemic attack (TIA), and cerebral infarction without residual deficits; Z82.49 Family history of ischemic heart disease and other diseases of the circulatory system; Z82.3 Family history of stroke
CPT/HCPCS: 36415; 70450; 80048; 80053; 80061; 81003; 82550; 82553; 82948; 83036; 83735; 84443; 84484; 85025; 85610; 85730; 87070; 92616; 97110; 97116; 97161; 99285; G0378; J2405; J7030

== ENCOUNTER 2018-01-10 04:56 | Emergency (ER) | payer OTHER, MEDICARE ==
[~2018-01-10] VITALS: Ht 180.3 cm; Wt 90.2 kg
[~2018-01-10 04:56] MED LIST changes: +COU1T PO; +ESOM40CA30 PO; -GEMF600T3 PO; -GLIM4TAB79 PO; +LEVO100T78 PO; -LEVO25TA7 PO; +METF500T4 PO
[2018-01-10] MEDS ORDERED: aspirin 81mg tab.chew PO ONE (05:00)
[2018-01-10 05:03] VITALS: BP 158/91
== END 2018-01-10 05:37 | disposition home or self-care (01) ==
LOC: ER 04:57
DX: R07.89 Other chest pain (principal); G89.29 Other chronic pain; E11.9 Type 2 diabetes mellitus without complications; E78.00 Pure hypercholesterolemia, unspecified; I25.10 Atherosclerotic heart disease of native coronary artery without angina pectoris; I11.0 Hypertensive heart disease with heart failure; I50.9 Heart failure, unspecified; J44.9 Chronic obstructive pulmonary disease, unspecified; I48.91 Unspecified atrial fibrillation; K21.9 Gastro-esophageal reflux disease without esophagitis; Z86.73 Personal history of transient ischemic attack (TIA), and cerebral infarction without residual deficits; Z95.0 Presence of cardiac pacemaker; Z90.49 Acquired absence of other specified parts of digestive tract; Z95.1 Presence of aortocoronary bypass graft; Z88.0 Allergy status to penicillin; Z79.01 Long term (current) use of anticoagulants; Z79.84 Long term (current) use of oral hypoglycemic drugs; Z79.899 Other long term (current) drug therapy
CPT/HCPCS: 71045; 93005; 99284; A4565

== ENCOUNTER 2018-02-26 08:28 | Day surgery (SDC) | payer MEDICARE ==
[2018-02-25 10:35] LABS: BASOPHILS % (AUTO) 0.5 % (0-1); EOSINOPHILS # (AUTO) 0.2 X10'3 (0-0.9); EOSINOPHILS % (AUTO) 4.6 % (0-6); HEMATOCRIT 30.2 % (42.0-52.0); HEMOGLOBIN 9.8 g/dl (14.0-17.9); LYMPHOCYTES # (AUTO) 0.6 X10'3 (1.1-4.8); LYMPHOCYTES % (AUTO) 10.7 % (21-51); MEAN CORPUSCULAR HEMOGLOBIN 29.5 PG (27.0-31.0); MEAN CORPUSCULAR HGB CONC 32.6 % (33.0-36.5); MEAN CORPUSCULAR VOLUME 90.4 FL (78-98); MEAN PLATELET VOLUME 8.4 FL (7.4-10.4); MONOCYTES # (AUTO) 0.4 X10'3 (0-0.9); NEUTROPHILS % (AUTO) 77.2 % (42-75); PLATELET COUNT 130 X10'3 (140-440); RED BLOOD COUNT 3.34 X10'6 (4.70-6.10); RED CELL DISTRIBUTION WIDTH 14.7 % (11.5-14.5); WHITE BLOOD COUNT 5.2 X10'3 (4.5-11.0)
[2018-02-25 10:44] LABS: ALBUMIN 3.5 G/DL (3.4-5.0); ANION GAP 5 (8-16); BLOOD UREA NITROGEN 15 MG/DL (7-18); BUN/CREATININE RATIO 15.5 (5.4-32.0); CALCIUM 8.6 MG/DL (8.5-10.1); CHLORIDE 104 MMOL/L (99-107); CREATININE 0.97 MG/DL (0.60-1.10); GLUCOSE 227 MG/DL (70-104); INR 2.3 INR; POTASSIUM 4.2 MMOL/L (3.5-5.1); SODIUM 139 MMOL/L (135-145); TOTAL CARBON DIOXIDE 29.7 MMOL/L (24-32); eGFR 74 ML/MIN
[2018-02-26] VITALS (17 sets, daily range): BP systolic 136–173; BP diastolic 76–104
[~2018-02-26] VITALS: Ht 180.3 cm; Wt 109.5 kg
[~2018-02-26 08:28] MED LIST changes: -METF500T4 PO; +METF500T6 PO
[2018-02-26] MEDS ORDERED: diphenhydrAMINE 25mg capsule PO ONE (08:45)
[2018-02-26] MEDS ORDERED: LORazepam 0.5 MG tablet PO ONE (08:45)
[2018-02-26] MEDS ORDERED: amiodarone in dextrose, iso-osm 150mg/100ml bag IV ONE (08:50)
[2018-02-26] MEDS ORDERED: morphine 10mg/ml inj. IV ONE (08:50)
[2018-02-26] MEDS ORDERED: MIDAZolam 5mg/ml 2ml vial IV ONE (08:50)
[2018-02-26] MEDS ORDERED: atropine 0.1mg/ml 10ml syringe IV ONE (08:50)
[2018-02-26] MEDS ORDERED: COU1T PO (09:18)
[2018-02-26] MEDS ORDERED: AMIO200T57 PO (09:18)
[2018-02-26] MEDS ORDERED: normal saline 1000ml 1,000 ML IV SCH (12:50)
== END 2018-02-26 15:08 | disposition home or self-care (01) ==
LOC: SSTAY O 08:28
PROVIDERS: ATTEND Internal Medicine Cardiovascular Disease
DX: I48.0 Paroxysmal atrial fibrillation (principal); E11.9 Type 2 diabetes mellitus without complications; I10 Essential (primary) hypertension; E78.5 Hyperlipidemia, unspecified; I25.10 Atherosclerotic heart disease of native coronary artery without angina pectoris; I49.5 Sick sinus syndrome; G47.33 Obstructive sleep apnea (adult) (pediatric); I27.20 Pulmonary hypertension, unspecified; E66.01 Morbid (severe) obesity due to excess calories; Z79.01 Long term (current) use of anticoagulants; Z90.49 Acquired absence of other specified parts of digestive tract; Z79.84 Long term (current) use of oral hypoglycemic drugs; Z95.0 Presence of cardiac pacemaker; Z95.1 Presence of aortocoronary bypass graft; Z87.891 Personal history of nicotine dependence
CPT/HCPCS: 36415; 80048; 82948; 85025; 85610; 92960; 93005; J2250; J2270; J7030; A4620; J0282

== ENCOUNTER 2018-07-17 13:04 | Inpatient (IN) | payer MEDICARE ==
[~2018-07-17] VITALS: Ht 180.3 cm; Wt 102.0 kg
[2018-07-17] MEDS: normal saline 1000ml 1,000 ML IV SCH (01:30)
[~2018-07-17 13:04] MED LIST changes: +AMIO200T40 PO; -AMIO200T57 PO; +METF-950 PO; -METF500T6 PO
[2018-07-17 14:48] LABS: BASOPHILS % (AUTO) 0.4 % (0-1); EOSINOPHILS # (AUTO) 0.1 X10'3 (0-0.9); EOSINOPHILS % (AUTO) 3.3 % (0-6); HEMATOCRIT 33.8 % (42.0-52.0); HEMOGLOBIN 11.4 g/dl (14.0-17.9); LYMPHOCYTES # (AUTO) 0.6 X10'3 (1.1-4.8); MEAN CORPUSCULAR HEMOGLOBIN 29.3 PG (27.0-31.0); MEAN CORPUSCULAR HGB CONC 33.9 % (33.0-36.5); MEAN CORPUSCULAR VOLUME 86.5 FL (78-98); MEAN PLATELET VOLUME 8.9 FL (7.4-10.4); MONOCYTES # (AUTO) 0.3 X10'3 (0-0.9); MONOCYTES % (AUTO) 7.9 % (2-12); NEUTROPHILS # (AUTO) 3.2 X10'3 (1.8-7.7); NEUTROPHILS % (AUTO) 73.4 % (42-75); PLATELET COUNT 127 X10'3 (140-440); RED BLOOD COUNT 3.91 X10'6 (4.70-6.10); RED CELL DISTRIBUTION WIDTH 17.5 % (11.5-14.5); WHITE BLOOD COUNT 4.2 X10'3 (4.5-11.0)
[2018-07-17 14:56] LABS: INR 2.2 INR; PARTIAL THROMBOPLASTIN TIME 32 SECONDS (22-32)
[2018-07-17 14:59] LABS: ALANINE AMINOTRANSFERASE 33 U/L (12-78); ALBUMIN 3.3 G/DL (3.4-5.0); ALBUMIN/GLOBULIN RATIO 1.1 (1.1-1.5); ALKALINE PHOSPHATASE 63 IU/L (46-116); ANION GAP 8 (8-16); ASPARTATE AMINO TRANSFERASE 25 U/L (10-37); BILIRUBIN,TOTAL 1.7 MG/DL (0.1-1.0); BLOOD UREA NITROGEN 14 MG/DL (7-18); BUN/CREATININE RATIO 13.7 (5.4-32.0); CALCIUM 8.6 MG/DL (8.5-10.1); CHLORIDE 103 MMOL/L (99-107); CREATININE 1.02 MG/DL (0.60-1.10); GLUCOSE 221 MG/DL (70-104); POTASSIUM 3.9 MMOL/L (3.5-5.1); SODIUM 140 MMOL/L (135-145); TOTAL CARBON DIOXIDE 28.8 MMOL/L (24-32); TOTAL PROTEIN 6.2 G/DL (6.4-8.2); eGFR 70 ML/MIN
[2018-07-17 15:02] LABS: TROPONIN I 0.07 NG/ML (0.0-0.05)
[2018-07-17] MEDS ORDERED: potassium Cl 40MEQ/NS 500ml 500 ML IV PRN ×2 (16:55)
[2018-07-17] MEDS ORDERED: acetaminophen 325mg tablet PO PRN ×2 (16:55)
[2018-07-17] MEDS ORDERED: dextrose 50%-water 50ml dispensing syringe IV PRN ×2 (16:55)
[2018-07-17] MEDS ORDERED: MESSAGE TO PHARMACY PO ONE (16:55)
[2018-07-17] MEDS ORDERED: magnesium 1gm/100ml D5W IVPB 100 ML IV PRN (16:55)
[2018-07-17] MEDS ORDERED: magnesium 4gm in 100ml NS 100 ML IV PRN (16:55)
[2018-07-17] MEDS ORDERED: magnesium hydroxide 30ml (MOM) UD suspension PO PRN (16:55)
[2018-07-17] MEDS ORDERED: potassium Cl 20 mEq SR tablet PO PRN ×2 (16:55)
[2018-07-17] MEDS ORDERED: mag hydrox/Alum hydrox/simeth 30ml oral suspension PO PRN (16:55)
[2018-07-17] MEDS ORDERED: magnesium Cl slow-release 64mg tablet PO PRN (16:55)
[2018-07-17] MEDS ORDERED: insulin Lispro (HumaLOG) vial - multi-dose SQ SCH (16:55)
[2018-07-17] MEDS ORDERED: ondansetron/PF 4mg/2ml inj IV PRN (16:55)
[2018-07-17] MEDS ORDERED: glucagon, human recombinant 1mg kit SUBCUT PRN (16:55)
[2018-07-17] MEDS ORDERED: dextrose ORAL solution 15 GM/59 ML bottle PO PRN ×2 (16:55)
[2018-07-17] MEDS ORDERED: non-formulary drug (Albuterol Sulfate (Proventil Hfa) 2 PUFFS) INH PRN (17:00)
[2018-07-17] MEDS ORDERED: albuterol 2.5 MG/3 ML nebule NEB PRN (17:15)
[2018-07-17 17:40] LABS: HEMOGLOBIN A1C 7.6 % (4.5-6.2)
[2018-07-17 19:20] VITALS: BP 191/101
[2018-07-17] MEDS ORDERED: hydrALAZINE 20mg/ml inj. IV PRN (20:15)
[2018-07-17] MEDS: amiodarone 200mg tablet PO SCH (20:48)
[2018-07-17] MEDS ORDERED: non-formulary drug (Atorvastatin Calcium 1 TAB) PO SCH (21:00)
[2018-07-17] MEDS ORDERED: temazepam 15mg capsule PO PRN (21:00)
[2018-07-17] MEDS ORDERED: atorvastatin 20mg tablet PO SCH (21:00)
[2018-07-17] MEDS ORDERED: insulin glargine (Lantus) pen - multi-dose SQ SCH (21:00)
[2018-07-17 22:00] VITALS: BP 157/85
[2018-07-18 02:00] VITALS: BP 176/87
[2018-07-18] MEDS: normal saline 1000ml 1,000 ML IV SCH ×2 (02:51→10:16)
[2018-07-18 06:00] VITALS: BP 115/59
[2018-07-18 06:10] LABS: ALBUMIN 2.9 G/DL (3.4-5.0); ANION GAP 7 (8-16); BLOOD UREA NITROGEN 12 MG/DL (7-18); BUN/CREATININE RATIO 13.3 (5.4-32.0); CALCIUM 8.3 MG/DL (8.5-10.1); CHLORIDE 106 MMOL/L (99-107); CHOL/HDL RATIO 2.2 (0.00-4.99); CHOLESTEROL 94 MG/DL (0-200); GLUCOSE 149 MG/DL (70-104); HDL CHOLESTEROL 42 MG/DL (35-60); LDL CHOLESTEROL 38 MG/DL (50-100); MAGNESIUM 1.3 MG/DL (1.5-2.4); PHOSPHORUS 3.3 MG/DL (2.3-4.5); POTASSIUM 3.4 MMOL/L (3.5-5.1); SODIUM 143 MMOL/L (135-145); TOTAL CARBON DIOXIDE 29.8 MMOL/L (24-32); TRIGLYCERIDES 146 MG/DL (20-135); eGFR 81 ML/MIN
[2018-07-18 06:16] LABS: HEMOGLOBIN 10.2 g/dl (14.0-17.9); MEAN CORPUSCULAR VOLUME 85.1 FL (78-98); MEAN PLATELET VOLUME 8.4 FL (7.4-10.4); PLATELET COUNT 123 X10'3 (140-440); RED BLOOD COUNT 3.52 X10'6 (4.70-6.10); RED CELL DISTRIBUTION WIDTH 17.1 % (11.5-14.5); WHITE BLOOD COUNT 4.3 X10'3 (4.5-11.0)
[2018-07-18 06:53] LABS: PARTIAL THROMBOPLASTIN TIME 31 SECONDS (22-32); PROTHROMBIN TIME 19.8 SECONDS (9.0-12.0)
[2018-07-18] MEDS ORDERED: pantoprazole 40mg Tablet.DR PO SCH (07:30)
[2018-07-18] MEDS ORDERED: finasteride 5mg tablet PO SCH (08:00)
[2018-07-18] MEDS ORDERED: K and/or MAG REPLACEMENT MC SCH (08:00)
[2018-07-18] MEDS ORDERED: levoTHYROXINE 100mcg tablet PO SCH (08:00)
[2018-07-18] MEDS ORDERED: non-formulary drug (Esomeprazole Magnesium (Nexium) 1 CAP) PO SCH (08:00)
[2018-07-18] MEDS ORDERED: warfarin 1mg tablet PO SCH (08:00)
[2018-07-18] MEDS ORDERED: aspirin 81mg tab.chew PO SCH (08:30)
[2018-07-18] MEDS: amiodarone 200mg tablet PO SCH (09:48)
[2018-07-18 10:00] VITALS: BP 156/78
[2018-07-19] MEDS ORDERED: warfarin 1mg tablet PO SCH (08:00)
== END 2018-07-18 18:04 | disposition home or self-care (01) | DRG 92 ==
LOC: ER 13:05 → ED HOLD 16:51 → ORTHO 4S 19:45
PROVIDERS: ADMIT Family Medicine; ATTEND Internal Medicine
DX: R47.1 Dysarthria and anarthria (principal); I50.22 Chronic systolic (congestive) heart failure; I13.0 Hypertensive heart and chronic kidney disease with heart failure and stage 1 through stage 4 chronic kidney disease, or unspecified chronic kidney disease; R41.0 Disorientation, unspecified; R29.810 Facial weakness; I25.10 Atherosclerotic heart disease of native coronary artery without angina pectoris; K21.9 Gastro-esophageal reflux disease without esophagitis; Z96.653 Presence of artificial knee joint, bilateral; E03.9 Hypothyroidism, unspecified; E11.22 Type 2 diabetes mellitus with diabetic chronic kidney disease; E78.00 Pure hypercholesterolemia, unspecified; D64.9 Anemia, unspecified; E78.5 Hyperlipidemia, unspecified; Z66 Do not resuscitate; G89.29 Other chronic pain; Z60.2 Problems related to living alone; I48.0 Paroxysmal atrial fibrillation; J44.9 Chronic obstructive pulmonary disease, unspecified; N18.3 Chronic kidney disease, stage 3 (moderate); N40.0 Benign prostatic hyperplasia without lower urinary tract symptoms; Z90.49 Acquired absence of other specified parts of digestive tract; Z95.0 Presence of cardiac pacemaker; Z95.1 Presence of aortocoronary bypass graft; Z88.0 Allergy status to penicillin; Z79.899 Other long term (current) drug therapy; Z79.01 Long term (current) use of anticoagulants; Z79.84 Long term (current) use of oral hypoglycemic drugs; Z87.891 Personal history of nicotine dependence; Z82.3 Family history of stroke; Z82.41 Family history of sudden cardiac death; Z82.49 Family history of ischemic heart disease and other diseases of the circulatory system
CPT/HCPCS: 36415; 70450; 70544; 70551; 71045; 80048; 80053; 80061; 82948; 83036; 83735; 84100; 84484; 85025; 85027; 85610; 85730; 87070; 92616; 93005; 93306; 97116; 97161; 97530; 99285; G0378; J0360; J1815; J7030

== ENCOUNTER 2018-08-10 11:20 | Emergency (ER) | payer MEDICARE ==
[~2018-08-10] VITALS: Ht 180.3 cm; Wt 99.8 kg
[2018-08-10] MEDS ORDERED: METF500T PO (12:05)
[2018-08-10] MEDS ORDERED: APIX5TAB3 PO (12:05)
[2018-08-10] MEDS ORDERED: LEVO50TA66 PO (12:06)
[2018-08-10] MEDS ORDERED: TETanus/Pertussis (Acell)/Diphther VAC/PF (Tdap-Adult) 0.5ml syringe IM ONE (13:20)
[2018-08-10 13:33] VITALS: BP 155/89
== END 2018-08-10 13:35 | disposition home or self-care (01) ==
LOC: ER 11:21
DX: S00.03XA Contusion of scalp, initial encounter (principal); T14.8XXA Other injury of unspecified body region, initial encounter; S06.9X1A Unspecified intracranial injury with loss of consciousness of 30 minutes or less, initial encounter; I48.91 Unspecified atrial fibrillation; I25.10 Atherosclerotic heart disease of native coronary artery without angina pectoris; I11.0 Hypertensive heart disease with heart failure; I50.9 Heart failure, unspecified; E78.00 Pure hypercholesterolemia, unspecified; K21.9 Gastro-esophageal reflux disease without esophagitis; E11.9 Type 2 diabetes mellitus without complications; G89.29 Other chronic pain; Z90.49 Acquired absence of other specified parts of digestive tract; Z95.1 Presence of aortocoronary bypass graft; Z95.0 Presence of cardiac pacemaker; Z98.890 Other specified postprocedural states; Z87.891 Personal history of nicotine dependence; Z60.2 Problems related to living alone; Z88.0 Allergy status to penicillin; Z79.01 Long term (current) use of anticoagulants; Z79.899 Other long term (current) drug therapy; W22.8XXA Striking against or struck by other objects, initial encounter; Y93.89 Activity, other specified; Y92.89 Other specified places as the place of occurrence of the external cause; Y99.8 Other external cause status
CPT/HCPCS: 70450; 72125; 90471; 90715; 93005; 99284

== ENCOUNTER 2018-08-11 12:40 | Emergency (ER) | payer MEDICARE ==
[~2018-08-11] VITALS: Ht 180.3 cm; Wt 99.5 kg
[~2018-08-11 12:40] MED LIST changes: -ALBU6.7H INH; +APIX5TAB3 PO; -COU1T PO; +LEVO50TA66 PO; +METF500T PO
[2018-08-11 13:59] VITALS: BP 136/84
== END 2018-08-11 15:39 | disposition home or self-care (01) ==
LOC: ER 12:41
DX: S06.0X9D Concussion with loss of consciousness of unspecified duration, subsequent encounter (principal); S00.03XD Contusion of scalp, subsequent encounter; I48.91 Unspecified atrial fibrillation; I25.10 Atherosclerotic heart disease of native coronary artery without angina pectoris; I11.0 Hypertensive heart disease with heart failure; I50.9 Heart failure, unspecified; J44.9 Chronic obstructive pulmonary disease, unspecified; K21.9 Gastro-esophageal reflux disease without esophagitis; E11.9 Type 2 diabetes mellitus without complications; G89.29 Other chronic pain; Z86.73 Personal history of transient ischemic attack (TIA), and cerebral infarction without residual deficits; Z90.49 Acquired absence of other specified parts of digestive tract; Z95.1 Presence of aortocoronary bypass graft; Z95.0 Presence of cardiac pacemaker; Z79.01 Long term (current) use of anticoagulants; Z88.0 Allergy status to penicillin; Z79.899 Other long term (current) drug therapy; W01.198D Fall on same level from slipping, tripping and stumbling with subsequent striking against other object, subsequent encounter
CPT/HCPCS: 70450; 99284

== ENCOUNTER 2018-09-08 16:03 | Emergency (ER) | payer MEDICARE ==
[~2018-09-08] VITALS: Ht 180.3 cm; Wt 100.2 kg
[2018-09-08 16:30] LABS: BASOPHILS % (AUTO) 0.7 % (0-1); EOSINOPHILS # (AUTO) 0.3 X10'3 (0-0.9); HEMATOCRIT 35.6 % (42.0-52.0); HEMOGLOBIN 11.7 g/dl (14.0-17.9); LYMPHOCYTES # (AUTO) 0.7 X10'3 (1.1-4.8); MEAN CORPUSCULAR HGB CONC 32.9 % (33.0-36.5); MEAN CORPUSCULAR VOLUME 88.2 FL (78-98); MEAN PLATELET VOLUME 8.4 FL (7.4-10.4); MONOCYTES # (AUTO) 0.4 X10'3 (0-0.9); NEUTROPHILS # (AUTO) 3.7 X10'3 (1.8-7.7); NEUTROPHILS % (AUTO) 72.3 % (42-75); PLATELET COUNT 144 X10'3 (140-440); RED BLOOD COUNT 4.04 X10'6 (4.70-6.10); RED CELL DISTRIBUTION WIDTH 16.4 % (11.5-14.5); WHITE BLOOD COUNT 5.1 X10'3 (4.5-11.0)
[2018-09-08 16:54] LABS: ALANINE AMINOTRANSFERASE 38 U/L (12-78); ALBUMIN 3.7 G/DL (3.4-5.0); ALBUMIN/GLOBULIN RATIO 1.3 (1.1-1.5); ALKALINE PHOSPHATASE 63 IU/L (46-116); ANION GAP 7 (8-16); ASPARTATE AMINO TRANSFERASE 33 U/L (10-37); BILIRUBIN,TOTAL 1.6 MG/DL (0.1-1.0); BLOOD UREA NITROGEN 17 MG/DL (7-18); CALCIUM 9.2 MG/DL (8.5-10.1); CHLORIDE 101 MMOL/L (99-107); CREATININE 1.06 MG/DL (0.60-1.10); GLUCOSE 153 MG/DL (70-104); POTASSIUM 4.2 MMOL/L (3.5-5.1); SODIUM 139 MMOL/L (135-145); TOTAL CARBON DIOXIDE 30.6 MMOL/L (24-32); TOTAL PROTEIN 6.6 G/DL (6.4-8.2); eGFR 67 ML/MIN
[2018-09-08 16:57] LABS: INR 1.1 INR; PROTHROMBIN TIME 11.4 SECONDS (9.0-12.0)
[2018-09-08 16:58] LABS: PARTIAL THROMBOPLASTIN TIME 27 SECONDS (22-32)
[2018-09-08 17:26] VITALS: BP 172/80
== END 2018-09-08 17:36 | disposition home or self-care (01) ==
LOC: ER 16:03
DX: S00.83XA Contusion of other part of head, initial encounter (principal); R41.0 Disorientation, unspecified; G47.30 Sleep apnea, unspecified; R29.810 Facial weakness; I25.10 Atherosclerotic heart disease of native coronary artery without angina pectoris; I48.91 Unspecified atrial fibrillation; I11.0 Hypertensive heart disease with heart failure; I50.9 Heart failure, unspecified; E78.00 Pure hypercholesterolemia, unspecified; J44.9 Chronic obstructive pulmonary disease, unspecified; K21.9 Gastro-esophageal reflux disease without esophagitis; E11.9 Type 2 diabetes mellitus without complications; E07.9 Disorder of thyroid, unspecified; G89.29 Other chronic pain; I25.2 Old myocardial infarction; Z88.0 Allergy status to penicillin; Z79.899 Other long term (current) drug therapy; Z86.73 Personal history of transient ischemic attack (TIA), and cerebral infarction without residual deficits; Z90.49 Acquired absence of other specified parts of digestive tract; Z98.890 Other specified postprocedural states; X58.XXXA Exposure to other specified factors, initial encounter; Y93.89 Activity, other specified; Y92.89 Other specified places as the place of occurrence of the external cause; Y99.8 Other external cause status
CPT/HCPCS: 36415; 70450; 80053; 84484; 85025; 85610; 85730; 93005; 99284

== ENCOUNTER 2019-08-13 16:10 | Emergency (ER) | payer MEDICARE ==
[~2019-08-13] VITALS: Ht 180.3 cm; Wt 100.9 kg
[~2019-08-13 16:10] MED LIST changes: -AMIO200T40 PO; +AMIO200T61 PO; -ESOM40CA30 PO; +ESOM40CA49 PO
[2019-08-13 17:22] LABS: BASOPHILS # (AUTO) 0.1 X10'3 (0-0.2); BASOPHILS % (AUTO) 1.2 % (0-1); EOSINOPHILS # (AUTO) 0.2 X10'3 (0-0.9); HEMATOCRIT 31.4 % (42.0-52.0); HEMOGLOBIN 10.4 g/dl (14.0-17.9); LYMPHOCYTES # (AUTO) 0.3 X10'3 (1.1-4.8); LYMPHOCYTES % (AUTO) 7.3 % (21-51); MEAN CORPUSCULAR HGB CONC 33.2 g/dL (33.0-36.5); MEAN CORPUSCULAR VOLUME 90.6 FL (78-98); MEAN PLATELET VOLUME 8.1 FL (7.4-10.4); MONOCYTES # (AUTO) 0.4 X10'3 (0-0.9); MONOCYTES % (AUTO) 7.7 % (2-12); NEUTROPHILS # (AUTO) 3.6 X10'3 (1.8-7.7); NEUTROPHILS % (AUTO) 78.8 % (42-75); PLATELET COUNT 121 X10'3 (140-440); RED BLOOD COUNT 3.46 X10'6 (4.70-6.10); RED CELL DISTRIBUTION WIDTH 21.8 % (11.5-14.5); WHITE BLOOD COUNT 4.6 X10'3 (4.5-11.0)
[2019-08-13 17:38] LABS: ALANINE AMINOTRANSFERASE 24 U/L (12-78); ALBUMIN 3.5 G/DL (3.4-5.0); ALBUMIN/GLOBULIN RATIO 1.1 (1.1-1.5); ALKALINE PHOSPHATASE 98 IU/L (46-116); ANION GAP 10 (8-16); ASPARTATE AMINO TRANSFERASE 29 U/L (10-37); BILIRUBIN,TOTAL 3.1 MG/DL (0.1-1.0); BLOOD UREA NITROGEN 11 MG/DL (7-18); BUN/CREATININE RATIO 11.8 (5.4-32.0); CALCIUM 8.7 MG/DL (8.5-10.1); CHLORIDE 104 MMOL/L (99-107); CREATININE 0.93 MG/DL (0.60-1.10); GLUCOSE 150 MG/DL (70-104); POTASSIUM 3.9 MMOL/L (3.5-5.1); SODIUM 141 MMOL/L (135-145); TOTAL CARBON DIOXIDE 27.4 MMOL/L (24-32); TOTAL PROTEIN 6.7 G/DL (6.4-8.2); eGFR 78 ML/MIN
[2019-08-13 17:45] LABS: ANISOCYTOSIS 3+; PLATELET ESTIMATE DECREASED; POIKILOCYTOSIS 1+; POLYCHROMASIA 1+
[2019-08-13 17:46] LABS: BURR CELLS FEW; ELLIPTOCYTES 1+; SCHISTOCYTES FEW; TEAR DROP CELLS 1+
[2019-08-13 18:54] LABS: LIPASE 133 U/L (73-393)
--- NOTE | 2019-08-13 19:00 | NUR ---
PT AWARE OF THE NEED FOR A URINE SAMPLE. HE IS ATTEMPTING TO PROVIDE ONE AT THIS TIME.
[2019-08-13] MEDS ORDERED: SUCR1TAB34 PO (19:19)
[2019-08-13 19:29] VITALS: BP 177/104
[2019-08-13 19:32] LABS: CLARITY,URINE SLIGHTLY CLOUDY (Clear); COLOR,URINE YELLOW (Yellow); GLUCOSE, URINE NEGATIVE (Neg); KETONES,URINE NEGATIVE (Neg); LEUKOCYTE ESTERASE ,URINE NEGATIVE (Neg); NITRITES, URINE NEGATIVE (Neg); OCCULT BLOOD,URINE NEGATIVE (Neg); PROTEIN,URINE TRACE mg/dl (Neg)
[2019-08-13 19:34] LABS: UA COLLECTION TYPE CLN CATCH MIDSTREAM
[2019-08-13 19:43] LABS: BACTERIA,URINE NONE SEEN /HPF (Neg); MUCUS STRANDS MANY /LPF (Neg); RBC,URINE 0-2 /HPF (0-2); SQUAMOUS EPITHELIAL CELL,UR MODERATE /LPF (FEW); WBC,URINE 0-4 /HPF (0-4)
== END 2019-08-13 19:30 | disposition home or self-care (01) ==
LOC: ER 16:11
DX: R10.32 Left lower quadrant pain (principal); I48.91 Unspecified atrial fibrillation; I25.10 Atherosclerotic heart disease of native coronary artery without angina pectoris; I11.0 Hypertensive heart disease with heart failure; I50.9 Heart failure, unspecified; E78.00 Pure hypercholesterolemia, unspecified; J44.9 Chronic obstructive pulmonary disease, unspecified; G47.30 Sleep apnea, unspecified; K21.9 Gastro-esophageal reflux disease without esophagitis; G89.29 Other chronic pain; E11.9 Type 2 diabetes mellitus without complications; Z90.49 Acquired absence of other specified parts of digestive tract; Z95.1 Presence of aortocoronary bypass graft; Z98.890 Other specified postprocedural states; Z95.0 Presence of cardiac pacemaker; Z88.0 Allergy status to penicillin; Z60.2 Problems related to living alone; Z79.84 Long term (current) use of oral hypoglycemic drugs; Z79.899 Other long term (current) drug therapy
CPT/HCPCS: 36415; 74176; 80053; 81001; 83690; 85025; 99284

== ENCOUNTER 2019-09-15 00:58 | Observation (INO) | payer MEDICARE ==
[~2019-09-15] VITALS: Ht 180.3 cm; Wt 98.7 kg
[~2019-09-15 00:58] MED LIST changes: +SUCR1TAB34 PO
[2019-09-15] MEDS ORDERED: NITR0.4T51 SL (01:17)
[2019-09-15 01:27] LABS: BASOPHILS % (AUTO) 0.9 % (0-1); EOSINOPHILS # (AUTO) 0.2 X10'3 (0-0.9); EOSINOPHILS % (AUTO) 5.2 % (0-6); HEMATOCRIT 32.8 % (42.0-52.0); LYMPHOCYTES # (AUTO) 0.5 X10'3 (1.1-4.8); LYMPHOCYTES % (AUTO) 10.9 % (21-51); MEAN CORPUSCULAR HEMOGLOBIN 31.2 PG (27.0-31.0); MEAN CORPUSCULAR HGB CONC 33.6 g/dL (33.0-36.5); MEAN CORPUSCULAR VOLUME 92.8 FL (78-98); MEAN PLATELET VOLUME 8.6 FL (7.4-10.4); MONOCYTES # (AUTO) 0.4 X10'3 (0-0.9); MONOCYTES % (AUTO) 8.4 % (2-12); NEUTROPHILS # (AUTO) 3.5 X10'3 (1.8-7.7); NEUTROPHILS % (AUTO) 74.6 % (42-75); PLATELET COUNT 112 X10'3 (140-440); RED BLOOD COUNT 3.53 X10'6 (4.70-6.10); RED CELL DISTRIBUTION WIDTH 18.1 % (11.5-14.5); WHITE BLOOD COUNT 4.8 X10'3 (4.5-11.0)
--- NOTE | 2019-09-15 01:27 | NUR ---
Hannah daughter: [phone]
[2019-09-15 01:38] LABS: PARTIAL THROMBOPLASTIN TIME 29 SECONDS (22-32)
[2019-09-15 01:45] LABS: ALANINE AMINOTRANSFERASE 28 U/L (12-78); ALBUMIN 3.3 G/DL (3.4-5.0); ALBUMIN/GLOBULIN RATIO 1.2 (1.1-1.5); ALKALINE PHOSPHATASE 82 IU/L (46-116); ANION GAP 8 (8-16); ASPARTATE AMINO TRANSFERASE 28 U/L (10-37); BILIRUBIN,TOTAL 1.7 MG/DL (0.1-1.0); BLOOD UREA NITROGEN 13 MG/DL (7-18); BUN/CREATININE RATIO 14.4 (5.4-32.0); CALCIUM 8.5 MG/DL (8.5-10.1); CHLORIDE 104 MMOL/L (99-107); GLUCOSE 197 MG/DL (70-104); POTASSIUM 3.7 MMOL/L (3.5-5.1); SODIUM 140 MMOL/L (135-145); TOTAL CARBON DIOXIDE 27.8 MMOL/L (24-32); TOTAL PROTEIN 6.1 G/DL (6.4-8.2); eGFR 81 ML/MIN
[2019-09-15 01:46] LABS: MAGNESIUM 1.4 MG/DL (1.5-2.4)
[2019-09-15] MEDS ORDERED: insulin Lispro (HumaLOG) vial - multi-dose SQ SCH (02:40)
[2019-09-15] MEDS ORDERED: mag hydrox/Alum hydrox/simeth 30ml oral suspension PO PRN (02:40)
[2019-09-15] MEDS ORDERED: dextrose ORAL solution 15 GM/59 ML bottle PO PRN ×2 (02:40)
[2019-09-15] MEDS ORDERED: magnesium 4gm in 100ml NS 100 ML IV PRN (02:40)
[2019-09-15] MEDS ORDERED: docusate sod 100mg capsule PO PRN (02:40)
[2019-09-15] MEDS ORDERED: magnesium 2GM in 50ml NS 50 ML IV PRN (02:40)
[2019-09-15] MEDS ORDERED: dextrose 50%-water 50ml dispensing syringe IV PRN ×2 (02:40)
[2019-09-15] MEDS ORDERED: potassium CL 10mEq/100ml bag 100 ML IV PRN ×2 (02:40)
[2019-09-15] MEDS ORDERED: glucagon, human recombinant 1mg kit SUBCUT PRN (02:40)
[2019-09-15] MEDS ORDERED: acetaminophen 325mg tablet PO PRN (02:40)
[2019-09-15] MEDS ORDERED: potassium Cl 20 mEq SR tablet PO PRN ×2 (02:40)
[2019-09-15] MEDS ORDERED: MESSAGE TO PHARMACY PO ONE (02:40)
[2019-09-15] MEDS ORDERED: nitroGLYCERIN 0.4mg SUBLingual tab SL PRN (02:40)
[2019-09-15] MEDS ORDERED: ondansetron/PF 4mg/2ml inj IV PRN (02:40)
[2019-09-15 03:07] LABS: HEMOGLOBIN A1C 7.5 % (4.5-6.2)
--- NOTE | 2019-09-15 03:40 | NUR ---
Patient in room . I have received report from ROBERT Spencer RN and had the opportunity to ask questions and assume patient care.
[2019-09-15 04:58] VITALS: BP 165/99
--- NOTE | 2019-09-15 06:38 | NUR ---
Patient in room [facility]. I have received report from Jeannette Londono RN and had the opportunity to ask questions and assume patient care.
--- NOTE | 2019-09-15 06:45 | NUR ---
Problems reprioritized. Patient report given, questions answered & plan of care reviewed with PUSHPA Springer.
[2019-09-15 07:00] VITALS: BP 163/95
[2019-09-15] MEDS ORDERED: non-formulary drug (Levothyroxine Sodium (Levoxyl) 1 TAB) PO SCH (08:00)
[2019-09-15] MEDS: K and/or MAG REPLACEMENT MC SCH ×2 (08:00→20:00)
[2019-09-15 09:08] LABS: CHOL/HDL RATIO 1.7 (0.00-4.99); CHOLESTEROL 75 MG/DL (0-200); HDL CHOLESTEROL 45 MG/DL (35-60); LDL CHOLESTEROL 22 MG/DL (50-100); TRIGLYCERIDES 56 MG/DL (20-135)
[2019-09-15] MEDS: levoTHYROXINE 100mcg tablet PO SCH (09:25)
[2019-09-15] MEDS: pantoprazole 40mg Tablet.DR PO SCH ×2 (09:25→21:44)
[2019-09-15] MEDS: apixaban 5mg tablet PO SCH ×2 (09:25→21:44)
[2019-09-15] MEDS: amiodarone 200mg tablet PO SCH ×2 (09:26→21:44)
[2019-09-15] MEDS: metoprolol tartrate 50mg tablet PO SCH ×2 (09:27→21:46)
[2019-09-15] MEDS: sucralfate 1 gm tablet PO SCH ×3 (09:27→21:44)
[2019-09-15 11:00] VITALS: BP 171/102
[2019-09-15] MEDS: finasteride 5mg tablet PO SCH (11:33)
[2019-09-15] MEDS ORDERED: hydrALAZINE 20mg/ml inj. IV PRN (12:45)
[2019-09-15] MEDS ORDERED: hydrALAZINE 20mg/ml inj. IV ONE (12:45)
--- NOTE | 2019-09-15 13:01 | NUR ---
Blood sugar was 172 mg/dl, patient already started eating his lunch. Will not start the insulin protocol at this time since the blood sugar reading may not be accurate since patient already ate. Will recheck before dinner
[2019-09-15] MEDS: amLODIPine 5mg tablet PO SCH (13:11)
[2019-09-15 16:00] VITALS: BP 146/86
--- NOTE | 2019-09-15 16:43 | NUR ---
DM consult: Pt with A1c 7.5, down from 7.6 in July of last year per records, seen at bedside. Pt denies any questions about DM management at this time. Written DM education with referral to outpatient DM class and RD contact information provided. Pt currently endorses a good appetite which is evident with documented with average 75-100% PO intake on heart healthy CHO controlled diet likely meeting nutrient needs. Pt reports getting full from meals and denies food preferences at this time. Pt denies food allergies, difficulty chewing/swallowing, or constipation/diarrhea. [facility] 09/15. Will continue to follow. Addendum: 09/15/19 at [address] Amended: Links added.
--- NOTE | 2019-09-15 18:30 | NUR ---
Patient in room [facility]. I have received report from Racheal BARROW and had the opportunity to ask questions and assume patient care.
--- NOTE | 2019-09-15 18:30 | NUR ---
Patient in room [facility]. I have received report from Racheal BARROW and had the opportunity to ask questions and assume patient care.
--- NOTE | 2019-09-15 19:04 | NUR ---
Problems reprioritized. Patient report given, questions answered & plan of care reviewed with Abigail BARROW.
[2019-09-15 20:00] VITALS: BP 155/92
[2019-09-15] MEDS ORDERED: insulin glargine (Lantus) pen - multi-dose SQ SCH (21:00)
[2019-09-15] MEDS ORDERED: atorvastatin 20mg tablet PO SCH (21:00)
[2019-09-15] MEDS ORDERED: doxazosin mesylate 2mg tablet PO SCH (21:00)
[2019-09-15] MEDS ORDERED: magnesium Cl slow-release 64mg tablet PO PRN (21:30)
[2019-09-16] VITALS: BP 157/91
[2019-09-16] MEDS: sucralfate 1 gm tablet PO SCH ×2 (04:25→09:14)
[2019-09-16 06:26] LABS: BASOPHILS # (AUTO) 0.1 X10'3 (0-0.2); BASOPHILS % (AUTO) 1.3 % (0-1); EOSINOPHILS # (AUTO) 0.3 X10'3 (0-0.9); EOSINOPHILS % (AUTO) 6.7 % (0-6); HEMATOCRIT 33.1 % (42.0-52.0); HEMOGLOBIN 11.3 g/dl (14.0-17.9); LYMPHOCYTES # (AUTO) 0.6 X10'3 (1.1-4.8); LYMPHOCYTES % (AUTO) 11.5 % (21-51); MEAN CORPUSCULAR HEMOGLOBIN 31.2 PG (27.0-31.0); MEAN CORPUSCULAR HGB CONC 34.1 g/dL (33.0-36.5); MEAN CORPUSCULAR VOLUME 91.6 FL (78-98); MEAN PLATELET VOLUME 8.5 FL (7.4-10.4); MONOCYTES # (AUTO) 0.4 X10'3 (0-0.9); MONOCYTES % (AUTO) 8.5 % (2-12); NEUTROPHILS # (AUTO) 3.5 X10'3 (1.8-7.7); PLATELET COUNT 107 X10'3 (140-440); RED BLOOD COUNT 3.61 X10'6 (4.70-6.10); RED CELL DISTRIBUTION WIDTH 17.9 % (11.5-14.5); WHITE BLOOD COUNT 4.8 X10'3 (4.5-11.0)
[2019-09-16 06:38] LABS: ALANINE AMINOTRANSFERASE 23 U/L (12-78); ALBUMIN 3.6 G/DL (3.4-5.0); ALBUMIN/GLOBULIN RATIO 1.3 (1.1-1.5); ALKALINE PHOSPHATASE 80 IU/L (46-116); ANION GAP 8 (8-16); ASPARTATE AMINO TRANSFERASE 22 U/L (10-37); BILIRUBIN,TOTAL 2.4 MG/DL (0.1-1.0); BLOOD UREA NITROGEN 11 MG/DL (7-18); BUN/CREATININE RATIO 12.6 (5.4-32.0); CALCIUM 8.7 MG/DL (8.5-10.1); CHLORIDE 106 MMOL/L (99-107); CREATININE 0.87 MG/DL (0.60-1.10); GLUCOSE 154 MG/DL (70-104); MAGNESIUM 1.7 MG/DL (1.5-2.4); POTASSIUM 3.6 MMOL/L (3.5-5.1); SODIUM 142 MMOL/L (135-145); TOTAL CARBON DIOXIDE 27.6 MMOL/L (24-32); TOTAL PROTEIN 6.3 G/DL (6.4-8.2); eGFR 84 ML/MIN
--- NOTE | 2019-09-16 06:47 | NUR ---
Problems reprioritized. Patient report given, questions answered & plan of care reviewed with Melba BARROW.
[2019-09-16 07:00] VITALS: BP 155/92
--- NOTE | 2019-09-16 07:22 | NUR ---
Problems reprioritized. Patient report given, questions answered & plan of care reviewed with Melba BARROW.
[2019-09-16 07:34] LABS: ANISOCYTOSIS 1+; BURR CELLS FEW; PLATELET ESTIMATE DECREASED; SCHISTOCYTES FEW
[2019-09-16] MEDS: K and/or MAG REPLACEMENT MC SCH (08:00)
[2019-09-16] MEDS: metoprolol tartrate 50mg tablet PO SCH (09:14)
[2019-09-16] MEDS: amiodarone 200mg tablet PO SCH (09:14)
[2019-09-16] MEDS: pantoprazole 40mg Tablet.DR PO SCH (09:14)
[2019-09-16] MEDS: levoTHYROXINE 100mcg tablet PO SCH (09:14)
[2019-09-16] MEDS: apixaban 5mg tablet PO SCH (09:14)
[2019-09-16] MEDS: amLODIPine 5mg tablet PO SCH (09:14)
[2019-09-16] MEDS: finasteride 5mg tablet PO SCH (09:15)
[2019-09-16 11:00] VITALS: BP 167/60
[2019-09-16 13:36] VITALS: BP 147/87
[2019-09-16] MEDS ORDERED: NOR5T PO (13:57)
--- NOTE | 2019-09-16 15:18 | NUR ---
Patient A&O and in no apparent distress. He okayed for his daughter to be at bedside for discharge teaching. Discussed with patient and daughter discharge teaching including new prescription and follow up appointment. Patient's daughter states she is the one who makes appointments for him and will do so. Both verbalize understanding of teaching. Patient dc'd with all personal belongings via wheelchair accompanied by [facility] staff and daughter.
== END 2019-09-16 15:16 | disposition home health service (06) ==
LOC: ER 00:58 → SUR 3N 03:54 → CMPBEDREQ 04:35
PROVIDERS: ADMIT Family Medicine; ATTEND Family Medicine
DX: R07.89 Other chest pain (principal); R00.2 Palpitations; I13.0 Hypertensive heart and chronic kidney disease with heart failure and stage 1 through stage 4 chronic kidney disease, or unspecified chronic kidney disease; E11.22 Type 2 diabetes mellitus with diabetic chronic kidney disease; N18.9 Chronic kidney disease, unspecified; I50.9 Heart failure, unspecified; I48.0 Paroxysmal atrial fibrillation; N40.0 Benign prostatic hyperplasia without lower urinary tract symptoms; E78.00 Pure hypercholesterolemia, unspecified; E78.5 Hyperlipidemia, unspecified; G47.30 Sleep apnea, unspecified; I24.9 Acute ischemic heart disease, unspecified; J44.9 Chronic obstructive pulmonary disease, unspecified; Z95.0 Presence of cardiac pacemaker; I25.10 Atherosclerotic heart disease of native coronary artery without angina pectoris; E03.9 Hypothyroidism, unspecified; Z87.891 Personal history of nicotine dependence; Z86.73 Personal history of transient ischemic attack (TIA), and cerebral infarction without residual deficits; Z95.1 Presence of aortocoronary bypass graft; Z96.653 Presence of artificial knee joint, bilateral; Z90.49 Acquired absence of other specified parts of digestive tract; Z95.810 Presence of automatic (implantable) cardiac defibrillator; Z79.84 Long term (current) use of oral hypoglycemic drugs; Z79.01 Long term (current) use of anticoagulants; Z79.899 Other long term (current) drug therapy; Z88.0 Allergy status to penicillin
CPT/HCPCS: 36415; 71045; 80053; 80061; 82948; 83036; 83735; 83880; 84484; 85025; 85610; 85730; 87081; 93005; 93306; 96374; 97161; 97530; 99284; G0378; J0360; J1815

== ENCOUNTER 2020-01-08 11:21 | Emergency (ER) | payer MEDICARE ==
[~2020-01-08] VITALS: Ht 180.3 cm; Wt 97.7 kg
[~2020-01-08 11:21] MED LIST changes: -LEVO50TA66 PO; +NITR0.4T51 SL; +NOR5T PO
[2020-01-08 11:39] VITALS: BP 154/94
--- NOTE | 2020-01-08 11:39 | NUR ---
daughter number karen anneliese "CARSON" [phone]
[2020-01-08] MEDS ORDERED: LIDOcaine 1% W/epiNEPHrine 1:200,000 10ml vial IJ ONE (12:15)
--- NOTE | 2020-01-08 13:10 | NUR ---
l&d of cyst. dressed with compressed 2x2 erwin covered by 4x4 gauze. Pt educated on need to change ~ 3 daily with instruction on how to reapply dressing provided allong with supply of 4x4 &2x2 gauze, per PAOLA Campos. Pt verbalized understanding of dc poc including requisite dressing changes.
== END 2020-01-08 13:18 | disposition home or self-care (01) ==
LOC: ER 11:22
DX: L72.3 Sebaceous cyst (principal); I48.91 Unspecified atrial fibrillation; I25.10 Atherosclerotic heart disease of native coronary artery without angina pectoris; I50.9 Heart failure, unspecified; E78.00 Pure hypercholesterolemia, unspecified; I11.0 Hypertensive heart disease with heart failure; I25.2 Old myocardial infarction; J44.9 Chronic obstructive pulmonary disease, unspecified; G47.30 Sleep apnea, unspecified; K21.9 Gastro-esophageal reflux disease without esophagitis; E11.9 Type 2 diabetes mellitus without complications; G89.29 Other chronic pain; Z86.73 Personal history of transient ischemic attack (TIA), and cerebral infarction without residual deficits; Z90.49 Acquired absence of other specified parts of digestive tract; Z95.1 Presence of aortocoronary bypass graft; Z95.0 Presence of cardiac pacemaker; Z98.890 Other specified postprocedural states; Z88.0 Allergy status to penicillin; Z79.01 Long term (current) use of anticoagulants; Z79.899 Other long term (current) drug therapy
CPT/HCPCS: 10060; 99284

== ENCOUNTER 2020-02-15 09:46 | Emergency (ER) | payer MEDICARE ==
[~2020-02-15] VITALS: Ht 180.3 cm; Wt 103.2 kg
--- NOTE | 2020-02-15 09:47 | NUR ---
Daughter Hannah contact information: [phone]
[2020-02-15 11:00] LABS: BASOPHILS # (AUTO) 0.1 X10'3 (0-0.2); EOSINOPHILS # (AUTO) 0.1 X10'3 (0-0.9); EOSINOPHILS % (AUTO) 1.8 % (0-6); HEMATOCRIT 36.4 % (42.0-52.0); HEMOGLOBIN 11.8 g/dl (14.0-17.9); LYMPHOCYTES # (AUTO) 0.4 X10'3 (1.1-4.8); MEAN CORPUSCULAR HEMOGLOBIN 31.4 PG (27.0-31.0); MEAN CORPUSCULAR HGB CONC 32.6 g/dL (33.0-36.5); MEAN CORPUSCULAR VOLUME 96.3 FL (78-98); MEAN PLATELET VOLUME 8.7 FL (7.4-10.4); MONOCYTES # (AUTO) 0.4 X10'3 (0-0.9); MONOCYTES % (AUTO) 7.6 % (2-12); NEUTROPHILS # (AUTO) 4.8 X10'3 (1.8-7.7); NEUTROPHILS % (AUTO) 82.6 % (42-75); PLATELET COUNT 120 X10'3 (140-440); RED BLOOD COUNT 3.78 X10'6 (4.70-6.10); RED CELL DISTRIBUTION WIDTH 17.3 % (11.5-14.5); WHITE BLOOD COUNT 5.8 X10'3 (4.5-11.0)
[2020-02-15 11:16] LABS: ALANINE AMINOTRANSFERASE 25 U/L (12-78); ALBUMIN 3.2 G/DL (3.4-5.0); ALBUMIN/GLOBULIN RATIO 1.1 (1.1-1.5); ALKALINE PHOSPHATASE 226 IU/L (46-116); ANION GAP 9 (8-16); ASPARTATE AMINO TRANSFERASE 29 U/L (10-37); BILIRUBIN,TOTAL 2.1 MG/DL (0.1-1.0); BLOOD UREA NITROGEN 12 MG/DL (7-18); BUN/CREATININE RATIO 11.3 (5.4-32.0); CALCIUM 8.5 MG/DL (8.5-10.1); CHLORIDE 106 MMOL/L (99-107); CREATININE 1.06 MG/DL (0.60-1.10); GLUCOSE 158 MG/DL (70-104); POTASSIUM 3.7 MMOL/L (3.5-5.1); SODIUM 140 MMOL/L (135-145); TOTAL CARBON DIOXIDE 24.8 MMOL/L (24-32); TOTAL PROTEIN 6.1 G/DL (6.4-8.2); eGFR 67 ML/MIN
[2020-02-15] MEDS ORDERED: TRAM50TA2 PO (12:38)
[2020-02-15] MEDS ORDERED: BENZ-38 PO (12:38)
[2020-02-15] MEDS ORDERED: PRED20TA PO (12:38)
[2020-02-15] MEDS ORDERED: ALBU6.7H9 INH (12:38)
[2020-02-15 12:56] VITALS: BP 146/102
== END 2020-02-15 12:57 | disposition home or self-care (01) ==
LOC: ER 09:47
DX: R05 Cough (principal); Z20.828 Contact with and (suspected) exposure to other viral communicable diseases; R07.89 Other chest pain; I48.91 Unspecified atrial fibrillation; I25.10 Atherosclerotic heart disease of native coronary artery without angina pectoris; I50.9 Heart failure, unspecified; E78.00 Pure hypercholesterolemia, unspecified; I11.0 Hypertensive heart disease with heart failure; I25.2 Old myocardial infarction; J44.9 Chronic obstructive pulmonary disease, unspecified; G47.30 Sleep apnea, unspecified; K21.9 Gastro-esophageal reflux disease without esophagitis; E11.22 Type 2 diabetes mellitus with diabetic chronic kidney disease; G89.29 Other chronic pain; Z90.49 Acquired absence of other specified parts of digestive tract; Z95.1 Presence of aortocoronary bypass graft; Z95.0 Presence of cardiac pacemaker; Z98.890 Other specified postprocedural states; Z86.73 Personal history of transient ischemic attack (TIA), and cerebral infarction without residual deficits; Z88.0 Allergy status to penicillin; Z79.01 Long term (current) use of anticoagulants; Z79.899 Other long term (current) drug therapy
CPT/HCPCS: 36415; 71045; 76700; 80053; 85025; 87635; 93005; 99285

== ENCOUNTER 2020-08-29 15:55 | Emergency (ER) | payer MEDICARE ==
[~2020-08-29] VITALS: Ht 180.3 cm; Wt 97.3 kg
[~2020-08-29 15:55] MED LIST changes: +ALBU6.7H9 INH
[2020-08-29 16:21] VITALS: BP 166/102
[2020-08-29 17:58] LABS: BASOPHILS % (AUTO) 0.9 % (0-1); EOSINOPHILS # (AUTO) 0.1 X10'3 (0-0.9); EOSINOPHILS % (AUTO) 2.7 % (0-6); HEMATOCRIT 35.4 % (42.0-52.0); HEMOGLOBIN 11.6 g/dl (14.0-17.9); LYMPHOCYTES # (AUTO) 0.4 X10'3 (1.1-4.8); LYMPHOCYTES % (AUTO) 8.1 % (21-51); MEAN CORPUSCULAR HEMOGLOBIN 32.5 PG (27.0-31.0); MEAN CORPUSCULAR HGB CONC 32.8 g/dL (33.0-36.5); MEAN CORPUSCULAR VOLUME 99.1 FL (78-98); MONOCYTES # (AUTO) 0.4 X10'3 (0-0.9); MONOCYTES % (AUTO) 7.4 % (2-12); NEUTROPHILS # (AUTO) 4.3 X10'3 (1.8-7.7); NEUTROPHILS % (AUTO) 80.9 % (42-75); PLATELET COUNT 125 X10'3 (140-440); RED BLOOD COUNT 3.57 X10'6 (4.70-6.10); RED CELL DISTRIBUTION WIDTH 15.3 % (11.5-14.5); WHITE BLOOD COUNT 5.3 X10'3 (4.5-11.0)
[2020-08-29 18:12] LABS: ALANINE AMINOTRANSFERASE 29 U/L (12-78); ALBUMIN 3.6 G/DL (3.4-5.0); ALBUMIN/GLOBULIN RATIO 1.1 (1.1-1.5); ALKALINE PHOSPHATASE 296 IU/L (46-116); ANION GAP 8 (8-16); ASPARTATE AMINO TRANSFERASE 28 U/L (10-37); BILIRUBIN,TOTAL 2.2 MG/DL (0.1-1.0); BLOOD UREA NITROGEN 17 MG/DL (7-18); BUN/CREATININE RATIO 17.7 (5.4-32.0); CALCIUM 9.1 MG/DL (8.5-10.1); CHLORIDE 102 MMOL/L (99-107); CREATININE 0.96 MG/DL (0.60-1.10); GLUCOSE 187 MG/DL (70-104); POTASSIUM 5.2 MMOL/L (3.5-5.1); SODIUM 137 MMOL/L (135-145); TOTAL CARBON DIOXIDE 26.6 MMOL/L (24-32); TOTAL PROTEIN 6.9 G/DL (6.4-8.2); eGFR 75 ML/MIN
== END 2020-08-29 20:06 | disposition home or self-care (01) ==
LOC: ER 15:55
DX: R06.02 Shortness of breath (principal); R05 Cough; J02.9 Acute pharyngitis, unspecified; R09.81 Nasal congestion; Z20.828 Contact with and (suspected) exposure to other viral communicable diseases
CPT/HCPCS: 36415; 71045; 71250; 80053; 83880; 84484; 85025; 87635; 93005; 99285

== ENCOUNTER 2020-10-02 12:26 | Emergency (ER) | payer MEDICARE ==
[~2020-10-02] VITALS: Ht 180.3 cm; Wt 107.7 kg
[2020-10-02] MEDS ORDERED: furosemide 40mg/4ml inj IV ONE (13:35)
[2020-10-02 14:01] LABS: BASOPHILS % (AUTO) 0.6 % (0-1); EOSINOPHILS # (AUTO) 0.2 X10'3 (0-0.9); EOSINOPHILS % (AUTO) 3.1 % (0-6); HEMATOCRIT 31.7 % (42.0-52.0); HEMOGLOBIN 10.4 g/dl (14.0-17.9); LYMPHOCYTES # (AUTO) 0.4 X10'3 (1.1-4.8); LYMPHOCYTES % (AUTO) 6.4 % (21-51); MEAN CORPUSCULAR HGB CONC 32.9 g/dL (33.0-36.5); MEAN CORPUSCULAR VOLUME 97.1 FL (78-98); MEAN PLATELET VOLUME 8.6 FL (7.4-10.4); MONOCYTES # (AUTO) 0.5 X10'3 (0-0.9); MONOCYTES % (AUTO) 7.9 % (2-12); NEUTROPHILS # (AUTO) 5.3 X10'3 (1.8-7.7); PLATELET COUNT 126 X10'3 (140-440); RED BLOOD COUNT 3.26 X10'6 (4.70-6.10); RED CELL DISTRIBUTION WIDTH 15.7 % (11.5-14.5); WHITE BLOOD COUNT 6.5 X10'3 (4.5-11.0)
[2020-10-02 14:11] LABS: ALANINE AMINOTRANSFERASE 25 U/L (12-78); ALBUMIN 3.3 G/DL (3.4-5.0); ALBUMIN/GLOBULIN RATIO 1.1 (1.1-1.5); ALKALINE PHOSPHATASE 264 IU/L (46-116); ANION GAP 6 (8-16); ASPARTATE AMINO TRANSFERASE 33 U/L (10-37); BILIRUBIN,TOTAL 1.2 MG/DL (0.1-1.0); BLOOD UREA NITROGEN 16 MG/DL (7-18); BUN/CREATININE RATIO 13.8 (5.4-32.0); CALCIUM 8.7 MG/DL (8.5-10.1); CHLORIDE 100 MMOL/L (99-107); CREATININE 1.16 MG/DL (0.60-1.10); GLUCOSE 167 MG/DL (70-104); POTASSIUM 4.7 MMOL/L (3.5-5.1); SODIUM 133 MMOL/L (135-145); TOTAL CARBON DIOXIDE 27.2 MMOL/L (24-32); TOTAL PROTEIN 6.2 G/DL (6.4-8.2); eGFR 60 ML/MIN
[2020-10-02 15:46] VITALS: BP 146/95
== END 2020-10-02 18:29 | disposition home or self-care (01) ==
LOC: ER 12:27
DX: I25.10 Atherosclerotic heart disease of native coronary artery without angina pectoris (principal); I13.0 Hypertensive heart and chronic kidney disease with heart failure and stage 1 through stage 4 chronic kidney disease, or unspecified chronic kidney disease; N18.9 Chronic kidney disease, unspecified; E78.00 Pure hypercholesterolemia, unspecified; J44.9 Chronic obstructive pulmonary disease, unspecified; K21.9 Gastro-esophageal reflux disease without esophagitis; E11.9 Type 2 diabetes mellitus without complications; E07.9 Disorder of thyroid, unspecified; Z86.73 Personal history of transient ischemic attack (TIA), and cerebral infarction without residual deficits; Z95.0 Presence of cardiac pacemaker; Z88.0 Allergy status to penicillin; Z79.899 Other long term (current) drug therapy
CPT/HCPCS: 36415; 71045; 80053; 83880; 84484; 85025; 85610; 93005; 96374; 99285; J1940